=== PATIENT | female | born 1940 | race Caucasian/White ===

== ENCOUNTER 2018-10-08 11:45 | Inpatient (IN) | payer MEDICARE ==
[2018-10-08] MEDS ORDERED: METHYLPREDNISOLONE INJ 125 MG/2 ML SDV IV ONE (12:05)
[2018-10-08] MEDS ORDERED: IPRATROPIUM/ALBUTEROL 0.5-2.5 MG/3 ML AMPUL NEB ONE (12:05)
[2018-10-08] MEDS ORDERED: RINGERS SOLUTION,LACTATED 1,000 ML IV ONE ×3 (12:06→14:40)
[2018-10-08 12:10] LABS: HEMATOCRIT 33.2 % (36.0-47.0); HEMOGLOBIN 10.3 g/dL (12.0-15.5); MEAN CORPUSCULAR HEMOGLOBIN 28.9 pg (27.0-33.4); MEAN CORPUSCULAR HGB CONC 31.1 g/dL (32.0-36.0); MEAN CORPUSCULAR VOLUME 93 fl (80-97); PLATELET COUNT 145 10^3/uL (150-450); RED BLOOD COUNT 3.58 10^6/uL (3.72-5.28); RED CELL DISTRIBUTION WIDTH 16.7 % (11.5-14.0)
[2018-10-08 12:26] LABS: ALANINE AMINOTRANSFERASE 53 U/L (9-52); ALBUMIN 3.2 g/dL (3.5-5.0); ALKALINE PHOSPHATASE 117 U/L (38-126); ANION GAP 18 (5-19); ASPARTATE AMINO TRANSFERASE 78 U/L (14-36); BILIRUBIN,DIRECT 0.6 mg/dL (0.0-0.4); BILIRUBIN,TOTAL 1.2 mg/dL (0.2-1.3); BLOOD UREA NITROGEN 30 mg/dL (7-20); CARBON DIOXIDE 26 mmol/L (22-30); CHLORIDE 94 mmol/L (98-107); GLUCOSE 246 mg/dL (75-110); POTASSIUM 4.2 mmol/L (3.6-5.0); SODIUM 138.1 mmol/L (137-145); TOTAL PROTEIN 7.3 g/dL (6.3-8.2)
--- NOTE | 2018-10-08 12:29 | ER Document Report ---
ED General - General Chief Complaint: Shortness Of Breath Stated Complaint: CHEST PAIN Time Seen by Provider: 10/08/18 11:54 Notes: Patient is a 78-year-old female with COPD, CHF that presents to the emergency department for chief complaint of shortness of breath, difficulty breathing, lightheadedness and chest pain. Patient states that her symptoms started earlier today, but she is been having short of breath over the last 2 days, that is been getting progressively worse, but her chest pain started today. She describes it as sharp sensation in her left chest, with radiation to the left shoulder. Denies history of CAD. But she does have a history of COPD and hypertension. She states that her work of breathing has been progressive, and she feels like she cannot catch her breath, she normally wears 2 L of oxygen 24 hours a day. She also reports having some dysuria and urinary frequency associate with the symptoms, denies having any flank pain, abdominal pain, nausea or vomiting. Past Medical History: CHF, COPD, hypertension, atrial fibrillation Past Surgical History: Cardiac valve replacement Social History: Denies tobacco, alcohol or drug use. Family History: Reviewed and noncontributory for presenting illness Allergies: Reviewed, see documented allergy list. REVIEW OF SYSTEMS: Other than noted above, the 12 point review of systems was reviewed with the patient and were negative, all pertinent findings are included in the HPI. PHYSICAL EXAMINATION: Vital signs reviewed, nursing noted reviewed. GENERAL: Elderly, obese female, in acute respiratory distress HEAD: Atraumatic, normocephalic. EYES: Eyes appear normal, extraocular movements intact, sclera anicteric, conjunctiva are normal. ENT: nares patent, oropharynx clear without exudates. Moist mucous membranes. NECK: Normal range of motion, supple without lymphadenopathy LUNGS: Diminished lung sounds, expiratory wheezing noted, acute and severe respiratory distress. HEART: Heart rate tachycardic, irregular rhythm, 3+ systolic murmur noted. ABDOMEN: Soft, nontender, normoactive bowel sounds. No rebound, guarding, or rigidity. No masses appreciated. EXTREMITIES: Nontender, good range of motion, no pitting or edema. NEUROLOGICAL: No focal neurological deficits. Moves all extremities spontaneously Motor and sensory grossly intact on exam. PSYCH: Patient appears anxious, and has increased work of breathing. SKIN: Warm, Dry, normal turgor, no rashes or lesions noted on exposed skin - Related Data Allergies/Adverse Reactions: Penicillins Allergy (Verified 10/08/18 12:10) Past Medical History - Social History Smoking Status: Never Smoker Family History: Reviewed & Not Pertinent Physical Exam - Vital signs Vitals: Temp Pulse Ox 98.3 F 88 L 10/08/18 11:45 10/08/18 11:45 Course - Re-evaluation Re-evalutation: Patient seen and examined vital signs reviewed. Laboratory data and imaging were ordered as appropriate for the patient's pre senting symptoms and complaint, with consideration of any critical or life threatening conditions that may be associated with their obtained history and exam as noted above. Patient was treated with IV fluid bolusing, she was noted to be hypotensive, she was started on BiPAP, she was hypoxic, on 4 L of nasal cannula, and was having acute respiratory distress, DuoNeb breathing treatments and steroids were ordered as well. Sepsis workup initiated. Results were reviewed when available and demonstrated significant leukocytosis at 26,000, with chest x-ray concerning for right lower lobe pneumonia, at this point IV meropenem, 1 g, and IV Levaquin 750 mg was ordered, the rest the patient's blood work demonstrated elevated lactic acid of 3.8, again pitting with severe sepsis, secondary to pneumonia, renal function demonstrate a creatinine of 1.55, no prior for comparison, INR was elevated however the patient is on Xarelto, and I do not believe this is from acute liver injury, secondary to the patient's hypertension. Her troponin was somewhat elevated at 0.12, however I believe this is secondary to supply demand mismatch, and a type II end STEMI secondary to the patient's hypoxia. Her initial EKG did demonstrate some ST depressions in the lateral leads, this was repeated, after being placed on BiPAP and is ST depressions did resolve. The patient was re-evaluated and was improving, on the BiPAP, her blood pressure did improve to over 100 systolic,, she was maintaining maps over 65, but still hypotensive, patient was bolused with 2 L of IV fluids, I did use ideal body weight for this patient as she has a BMI of greater than 30, and does have congestive heart failure, therefore she has received at least 30 ml/kg based on ideal body weight. Evaluation was most consistent with severe sepsis, pneumonia, acute on chronic respiratory failure with hypoxia, lactic acidosis, elevated troponin Results were discussed with the patient at this point after careful consideration I feel that that patient should be admitted to the hospital. This was discussed with the patient that it is in the best interest for their care to be admitted for further evaluation and management. Patient agreed with this plan of care. A call was placed to the admitted physician, Dr. Ugarte who yris ously accepted the patient onto their service. *Note is created using voice recognition software and may contain spelling, syntax or grammatical errors. Laboratory 10/08/18 10/08/18 10/08/18 11:10 11:10 11:10 WBC 26.0 H RBC 3.58 L Hgb 10.3 L Hct 33.2 L MCV 93 MCH 28.9 MCHC 31.1 L RDW 16.7 H Plt Count 145 L Total Counted 100 Seg Neutrophils % Not Reportable Seg Neuts % (Manual) 80 H Band Neutrophils % 2 L Lymphocytes % Not Reportable Lymphocytes % (Manual) 7 L Monocytes % Not Reportable Monocytes % (Manual) 10 Eosinophils % Not Reportable Eosinophils % (Manual) 0 Basophils % Not Reportable Basophils % (Manual) 0 Metamyelocytes % 1 H Absolute Neutrophils Not Reportable Abs Neuts (Manual) 21.6 H Absolute Lymphocytes Not Reportable Abs Lymphs (Manual) 1.8 Absolute Monocytes Not Reportable Abs Monocytes (Manual) 2.6 H Absolute Eosinophils Not Reportable Absolute Eos (Manual) 0.0 Absolute Basophils Not Reportable Abs Basophils (Manual) 0.0 Toxic Granulation SLIGHT Platelet Comment ADEQUATE Polychromasia SLIGHT Hypochromasia 1+ Anisocytosis 1+ PT INR Carbonic Acid HCO3/H2CO3 Ratio ABG pH ABG pCO2 ABG pO2 ABG HCO3 ABG Total CO2 ABG O2 Saturation ABG Base Excess FiO2 Sodium 138.1 Potassium 4.2 Chloride 94 L Carbon Dioxide 26 Anion Gap 18 BUN 30 H Creatinine 1.55 H Est GFR ( Amer) 39 L Est GFR (Non-Af Amer) 33 L Glucose 246 H Lactic Acid Calcium 8.0 L Total Bilirubin 1.2 Direct Bilirubin 0.6 H Neonat Total Bilirubin Not Reportable Neonat Direct Bilirubin Not Reportable Neonat Indirect Bili Not Reportable AST 78 H ALT 53 H Alkaline Phosphatase 117 Troponin I 0.144 NT-Pro-B Natriuret Pep Total Protein 7.3 Albumin 3.2 L 10/08/18 10/08/1818 11:10 12:40 13:00 WBC RBC Hgb Hct MCV MCH MCHC RDW Plt Count Total Counted Seg Neutrophils % Seg Neuts % (Manual) Band Neutrophils % Lymphocytes % Lymphocytes % (Manual) Monocytes % Monocytes % (Manual) Eosinophils % Eosinophils % (Manual) Basophils % Basophils % (Manual) Metamyelocytes % Absolute Neutrophils Abs Neuts (Manual) Absolute Lymphocytes Abs Lymphs (Manual) Absolute Monocytes Abs Monocytes (Manual) Absolute Eosinophils Absolute Eos (Manual) Absolute Basophils Abs Basophils (Manual) Toxic Granulation Platelet Comment Polychromasia Hypochromasia Anisocytosis PT INR Carbonic Acid 1.78 H HCO3/H2CO3 Ratio 17:1 ABG pH 7.35 ABG pCO2 59.3 H ABG pO2 91.8 ABG HCO3 31.6 H ABG Total CO2 33.5 H ABG O2 Saturation 96.4 ABG Base Excess 4.8 FiO2 40% Sodium Potassium Chloride Carbon Dioxide Anion Gap BUN Creatinine Est GFR ( Amer) Est GFR (Non-Af Amer) Glucose Lactic Acid 3.8 H Calcium Total Bilirubin Direct Bilirubin Neonat Total Bilirubin Neonat Direct Bilirubin Neonat Indirect Bili AST ALT Alkaline Phosphatase Troponin I NT-Pro-B Natriuret Pep 35781 H Total Protein Albumin 10/08/18 13:00 WBC RBC Hgb Hct MCV MCH MCHC RDW Plt Count Total Counted Seg Neutrophils % Seg Neuts % (Manual) Band Neutrophils % Lymphocytes % Lymphocytes % (Manual) Monocytes % Monocytes % (Manual) Eosinophils % Eosinophils % (Manual) Basophils % Basophils % (Manual) Metamyelocytes % Absolute Neutrophils Abs Neuts (Manual) Absolute Lymphocytes Abs Lymphs (Manual) Absolute Monocytes Abs Monocytes (Manual) Absolute Eosinophils Absolute Eos (Manual) Absolute Basophils Abs Basophils (Manual) Toxic Granulation Platelet Comment Polychromasia Hypochromasia Anisocytosis PT 28.6 H INR 2.55 Carbonic Acid HCO3/H2CO3 Ratio ABG pH ABG pCO2 ABG pO2 ABG HCO3 ABG Total CO2 ABG O2 Saturation ABG Base Excess FiO2 Sodium Potassium Chloride Carbon Dioxide Anion Gap BUN Creatinine Est GFR ( Amer) Est GFR (Non-Af Amer) Glucose Lactic Acid Calcium Total Bilirubin Direct Bilirubin Neonat Total Bilirubin Neonat Direct Bilirubin Neonat Indirect Bili AST ALT Alkaline Phosphatase Troponin I NT-Pro-B Natriuret Pep Total Protein Albumin Chest X-Ray 10/08/18 11:48 IMPRESSION: PROBABLE CHRONIC INTERSTITIAL CHANGES. PATCHY DENSITY IN THE RIGHT LOWER LOBE MAY INDICATE DEVELOPING PNEUMONIA. - Vital Signs Vital signs: Temp Pulse Resp BP Pulse Ox 98.3 F 23 H 81/64 L 100 10/08/18 11:53 10/08/18 14:01 10/08/18 14:01 10/08/18 14:00 - Laboratory Result Diagrams: 10/08/18 11:10 10/08/18 11:10 Laboratory results interpreted by me: 10/08/18 10/08/18 10/08/18 11:10 11:10 11:10 WBC 26.0 H RBC 3.58 L Hgb 10.3 L Hct 33.2 L MCHC 31.1 L RDW 16.7 H Plt Count 145 L Seg Neuts % (Manual) 80 H Band Neutrophils % 2 L Lymphocytes % (Manual) 7 L Metamyelocytes % 1 H Abs Neuts (Manual) 21.6 H Abs Monocytes (Manual) 2.6 H PT Carbonic Acid ABG pCO2 ABG HCO3 ABG Total CO2 Chloride 94 L BUN 30 H Creatinine 1.55 H Est GFR ( Amer) 39 L Est GFR (Non-Af Amer) 33 L Glucose 246 H Lactic Acid Calcium 8.0 L Direct Bilirubin 0.6 H AST 78 H ALT 53 H NT-Pro-B Natriuret Pep 38008 H Albumin 3.2 L 10/08/18 10/08/18 10/08/18 12:40 13:00 13:00 WBC RBC Hgb Hct MCHC RDW Plt Count Seg Neuts % (Manual) Band Neutrophils % Lymphocytes % (Manual) Metamyelocytes % Abs Neuts (Manual) Abs Monocytes (Manual) PT 28.6 H Carbonic Acid 1.78 H ABG pCO2 59.3 H ABG HCO3 31.6 H ABG Total CO2 33.5 H Chloride BUN Creatinine Est GFR ( Amer) Est GFR (Non-Af Amer) Glucose Lactic Acid 3.8 H Calcium Direct Bilirubin AST ALT NT-Pro-B Natriuret Pep Albumin - EKG Interpretation by Me Additional EKG results interpreted by me: EKG demonstrates sinus rhythm with first-degree AV block, ventricular rate of 98 bpm, normal axis, QTC 496ms, patient does have ST depressions in leads I, aVL, and V5 and V6, there is baseline artifact, I do not have a prior EKG for comparison. EKG #2 demonstrates atrial fibrillation with ventricular rate of 85 bpm, normal axis, QTC 524 ms, ST depressions noted on previous EKG have resolved. Procedures - Additional Procedures IV insertion Additional Procedures: IV insertion - Ultrasound-guided IV placed by myself, and the patient's left upper arm. Critical Care Note - Critical Care Note Total time excluding time spent on procedures (mins): 60 Comments: Critical care time 60 minutes exclusive from separate billable procedures for a patient requiring complex medical decision making, and high potential for clinical deterioration. In a patient with multiple comorbidities, severe sepsis, requiring fluid resuscitation and placement on noninvasive positive pressure ventilation. Time spent obtaining history from patient or surrogate, discussions with consultants, development of treatment plan with patient or surr ogate, evaluation of patient's response to treatment, examination of patient, ordering and performing treatments and interventions, ordering and review of laboratory studies, re-evaluation of patient's condition, ordering and review of radiographic studies and review of old charts Discharge - Discharge Clinical Impression: Severe sepsis, Elevated troponin, Lactic acidosis Pneumonia Qualifiers: Pneumonia type: due to unspecified organism Laterality: right Lung location: lower lobe of lung Qualified Code(s): J18.1 - Lobar pneumonia, unspecified organism Hypotension Qualifiers: Hypotension type: unspecified hypotension type Qualified Code(s): I95.9 - Hypotension, unspecified Acute and chronic respiratory failure Qualifiers: Respiratory failure complication: hypoxia and hypercapnia Qualified Code(s): J96.21 - Acute and chronic respiratory failure with hypoxia Condition: Stable Disposition: ADMITTED INPATIENT Admitting Provider: Hospitalist - Dr. Ugarte Unit Admitted: [facility]
[2018-10-08] MEDS ORDERED: LEVOFLOXACIN 750 MG/D5W RTU 750 MG/150 ML RTUPB IV ONE (12:34)
[2018-10-08] MEDS ORDERED: MEROPENEM 1 GM VIAL IV ONE (12:34)
--- NOTE | 2018-10-08 12:51 | RADIOLOGY REPORT (SQ) ---
EXAM DESCRIPTION: CHEST SINGLE VIEW COMPLETED DATE/TIME: 10/08/2018 12:33 pm REASON FOR STUDY: BED 10 CP COMPARISON: None. EXAM PARAMETERS: NUMBER OF VIEWS: One view. TECHNIQUE: Single frontal radiographic view of the chest acquired. RADIATION DOSE: NA LIMITATIONS: None. FINDINGS: LUNGS AND PLEURA: Probable chronic interstitial changes. Patchy density in the right lowe r lobe. No large pleural effusion. No pneumothorax. MEDIASTINUM AND HILAR STRUCTURES: No masses. Contour normal. HEART AND VASCULAR STRUCTURES: Heart normal in size. Normal vasculature. BONES: No acute findings. HARDWARE: Aortic valve prosthesis. Bilateral surgical clips. Vascular port. OTHER: No other significant finding. IMPRESSION: PROBABLE CHRONIC INTERSTITIAL CHANGES. PATCHY DENSITY IN THE RIGHT LOWER LOBE MAY INDIC ATE DEVELOPING PNEUMONIA. TECHNICAL DOCUMENTATION: JOB ID: [id number] [employer]- All Rights Reserved Reading location - IP/workstation name: [email or web address]
[2018-10-08 13:00] LABS: ARTERIAL BLOOD BASE EXCESS 4.8 mmol/L; ARTERIAL BLOOD H2CO3 1.78 mmol/L (1.05-1.35); ARTERIAL BLOOD HCO3 31.6 mmol/L (20-24); ARTERIAL BLOOD O2 SATURATION 96.4 % (94-98); ARTERIAL BLOOD PCO2 59.3 mmHg (35-45); ARTERIAL BLOOD PH 7.35 (7.35-7.45); ARTERIAL BLOOD PO2 91.8 mmHg (80-100); ARTERIAL BLOOD TOTAL CO2 33.5 mmol/L (21-25)
[2018-10-08 13:02] LABS: ABSOLUTE LYMPHOCYTES# (MANUAL) 1.8 10^3/uL (0.5-4.7); ABSOLUTE MONOCYTES # (MANUAL) 2.6 10^3/uL (0.1-1.4); ABSOLUTE NEUTROPHILS# (MANUAL) 21.6 10^3/uL (1.7-8.2); ANISOCYTOSIS 1+; BAND NEUTROPHILS % (MANUAL) 2 % (3-5); BASOPHILS % (MANUAL) 0 % (0-2); EOSINOPHILS % (MANUAL) 0 % (0-6); HYPOCHROMASIA 1+; LYMPHOCYTES % (MANUAL) 7 % (13-45); METAMYELOCYTES % (MANUAL) 1 % (0); MONOCYTES % (MANUAL) 10 % (3-13); PLATELET COMMENT ADEQUATE; POLYCHROMASIA SLIGHT; SEGMENTED NEUTROPHILS % (MAN) 80 % (42-78); TOTAL CELLS COUNTED 100; TOXIC GRANULATION SLIGHT
[2018-10-08 13:02] LABS: ARTERIAL BLOOD FIO2 40%
--- NOTE | 2018-10-08 13:06 | EKG REPORT ---
SEVERITY:- ABNORMAL ECG - SINUS RHYTHM FIRST DEGREE AV BLOCK LEFT ATRIAL ABNORMALITY NONSPECIFIC INTRAVENTRICULAR CONDUCTION DELAY LVH WITH SECONDARY REPOLARIZATION ABNORMALITY : Confirmed by: Kendell Dowd MD 08-Oct-2018 13:04:52
[2018-10-08 13:46] LABS: INTERNATIONAL RATION (INR) 2.55; PROTHROMBIN TIME 28.6 SEC (11.4-15.4)
[2018-10-08] MEDS ORDERED: LEVALBUTEROL HCL NEB 1.25 MG/3 ML AMPUL NEB PRN (15:56)
[2018-10-08] MEDS ORDERED: ACETAMINOPHEN 325 MG TABLET PO PRN (15:56)
[2018-10-08] MEDS ORDERED: ALPRAZOLAM 0.25 MG TABLET PO PRN (16:08)
[2018-10-08] MEDS ORDERED: RINGERS SOLUTION,LACTATED 1,000 ML IV PRN (16:10)
[2018-10-08 16:13] LABS: APPEARANCE,URINE CLOUDY; BILIRUBIN,URINE NEGATIVE (NEGATIVE); GLUCOSE, URINE NEGATIVE (NEGATIVE); KETONES,URINE NEGATIVE (NEGATIVE); LEUKOCYTE ESTERASE,URINE MODERATE (NEGATIVE); NITRITE,URINE NEGATIVE (NEGATIVE); PROTEIN,URINE 100 mg/dL (NEGATIVE)
[2018-10-08 16:14] LABS: COLOR,URINE DARK YELLOW
--- NOTE | 2018-10-08 16:53 | PDOC H&P ---
History of Present Illness Admission Date/PCP: 10/08/18 14:12 Patient complains of: Increased shortness of breath with rigors and fever History of Present Illness: LISA GARDNER is a 78 year old female With a complex medical history. 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 She has had an aortic valve replacement in February of this year. She had bilateral mastectomies (1976 and 2015) and has underlying COPD. Approximately 1 week ago she began to feel poorly. She was noticing increasing shortness of breath. She began to feel wheezy and then had shaking chills and subsequently felt like she was b urning up. Interestingly she never had a productive cough. She just finished one chemotherapy treatment 1 month ago. In addition she states that her urine has been burning when she pees over the last day or 2. On presentation she was found to be hypotensive despite 2 L of Ringer's lactate. She is tachycardic. Chest x-ray shows a right lower lobe infiltrate with possible interstitial lung disease. [place] for her aortic valve replacement were noted. She also has a Port-A-Cath. She has an elevated white blood cell count, increased lactic acid, hyperglycemia and decreased GFR likely from an acute kidney injury. Past Medical History Cardiac Medical History: Reports: Atrial Fibrillation Cardiac History Note: The patient has required pressor therapy on 2 occasions. Most recently during her aortic valve replacement hospitalization. Pulmonary Medical History: Reports: Chronic Obstructive Pulmonary Disease (COPD) - w/ 2LNC home 02 EENT Medical History: Denies: Eyes, Ears, Nose, Throat Neurological Medical History: Reports: None Endocrine Medical History: Reports: Hypothyroidism Renal/ Medical History: Denies: Chronic Kidney Disease Malignancy Medical History: Reports: Bone Cancer, Breast Cancer GI Medical History: Reports: None Musculoskeltal Medical History: Reports: Arthritis, Other - Bone metastases Skin Medical History: Reports: None Psychiatric Medical History: Denies: Alcohol Dependency, Depression Traumatic Medical History: Reports: None Hematology: Denies: Anemia, Bleeding Tendencies Infectious Medical History: Reports: None Past Surgical History Past Surgical History: Reports: Mastectomy - bilateral, Orthopedic Surgery - Right ankle fracture repair, Tubal Ligation, Valve Replacement Social History Information Source: Patient, Relative Lives with: Alone Smoking Status: Never Smoker Frequency of Alcohol Use: None Hx Recreational Drug Use: No Hx Prescription Drug Abuse: No Past Social History Note: with one son - Advance Directive Surrogate healthcare decision maker:: Patient does not have a formal healthcare proxy but her son (who is at the bedside) would be the next relative to make decisions. Family History Family History: CAD - Father, Malignancy - Both grandfathers, 1 brother Parental Family History Reviewed: Yes - As above Children Family History Reviewed: Yes Sibling(s) Family History Reviewed.: Yes Medication/Allergy Home Medications: Alprazolam [Xanax 0.25 mg Tablet] 0.25 mg PO Q8HP PRN 10/08/18 Aspirin [Ecotrin 81 mg EC Tablet] 81 mg PO DAILY 10/08/18 Furosemide [Lasix 40 mg Tablet] 40 mg PO DAILY 10/08/18 Levothyroxine Sodium [Synthroid 0.025 mg Tablet] 0.025 mg PO Q6AM 10/08/18 Pantoprazole Sodium [Protonix] 40 mg PO DAILY 10/08/18 Rivaroxaban [Xarelto] 20 mg PO DAILY 10/08/18 Umeclidinium Brm/Vilanterol Tr [Anoro Ellipta 62.5-25 Mcg INH] 1 each IH DAILY 10/08/18 Allergies/Adverse Reactions: Penicillins Allergy (Verified 10/08/18 12:10) Review of Systems Constitutional: PRESENT: as per HPI, chills, fever(s) Eyes: ABSENT: visual disturbances Ears: ABSENT: hearing changes Nose, Mouth, and Throat: ABSENT: headache(s), mouth pain, vertigo Cardiovascular: PRESENT: dyspnea on exertion. ABSENT: chest pain Respiratory: PRESENT: cough, dyspnea. ABSENT: sputum Gastrointestinal: PRESENT: abdominal pain, diarrhea - Recent episode. ABSENT: nausea, vomiting Genitourinary: PRESENT: dysuria Musculoskeletal: PRESENT: other - Arthritis and multiple joints Integumentary: PRESENT: other - Chronic pigment deposition lower extremities consistent with venous insufficiency Neurological: ABSENT: abnormal speech, confusion, memory loss, syncope, vertigo Psychiatric: ABSENT: anxiety, depression, hallucinations Endocrine: ABSENT: cold intolerance, heat intolerance, polydipsia, polyphagia Hematologic/Lymphatic: ABSENT: easy bleeding, easy bruising - She is on aspirin and Xarelto Physical Exam Vital Signs: Temp Pulse Resp BP Pulse Ox 98.3 F 38 H 85/71 L 95 10/08/18 11:53 10/08/18 15:13 10/08/18 15:13 10/08/18 16:12 Intake & Output 10/07/18 10/08/18 10/09/18 06:59 06:59 06:59 Intake Total 4750 Balance 4750 Weight 103 kg General appearance: PRESENT: cooperative, mild distress, obese, well-developed Head exam: PRESENT: atraumatic, normocephalic Eye exam: PRESENT: conjunctiva pink. ABSENT: scleral icterus Ear exam: PRESENT: normal external ear exam Respiratory exam: PRESENT: clear to auscultation konrad, decreased breath sounds - Currently on BiPAP, prolonged expiratory phas, symmetrical. ABSENT: accessory muscle use, rales, rhonchi, wheezes Cardiovascular exam: PRESENT: +S1, +S2, systolic murmur, tachycardia. ABSENT: clicks GI/Abdominal exam: PRESENT: distended - Protuberant, normal bowel sounds, soft, tenderness - Slightly tender periumbilical area Rectal exam: PRESENT: deferred Extremities exam: PRESENT: +1 edema Musculoskeletal exam: PRESENT: normal inspection Neurological exam: PRESENT: alert, awake, oriented to person, oriented to place, oriented to situation, CN II-XII grossly intact Psychiatric exam: PRESENT: appropriate affect. ABSENT: agitated Focused psych exam: ABSENT: restlessness Additional comments: Bilateral mastectomies. Port-A-Cath present. Results Laboratory Results: 10/08/18 11:10 10/08/18 11:10 10/08/18 10/08/18 10/08/18 11:10 11:10 12:40 WBC 26.0 H RBC 3.58 L Hgb 10.3 L Hct 33.2 L MCV 93 MCH 28.9 MCHC 31.1 L RDW 16.7 H Plt Count 145 L Seg Neutrophils % Not Reportable Lymphocytes % Not Reportable Monocytes % Not Reportable Eosinophils % Not Reportable Basophils % Not Reportable Absolute Neutrophils Not Reportable Absolute Lymphocytes Not Reportable Absolute Monocytes Not Reportable Absolute Eosinophils Not Reportable Absolute Basophils Not Reportable Carbonic Acid 1.78 H HCO3/H2CO3 Ratio 17:1 ABG pH 7.35 ABG pCO2 59.3 H ABG pO2 91.8 ABG HCO3 31.6 H ABG O2 Saturation 96.4 ABG Base Excess 4.8 FiO2 40% Sodium 138.1 Potassium 4.2 Chloride 94 L Carbon Dioxide 26 Anion Gap 18 BUN 30 H Creatinine 1.55 H Est GFR ( Amer) 39 L Est GFR (Non-Af Amer) 33 L Glucose 246 H Lactic Acid Calcium 8.0 L Total Bilirubin 1.2 AST 78 H ALT 53 H Alkaline Phosphatase 117 Total Protein 7.3 Albumin 3.2 L Urine Color Urine Appearance Urine pH Ur Specific [place] Urine Protein Urine Glucose (UA) Urine Ketones Urine Blood Urine Nitrite Ur Leukocyte Esterase Urine WBC (Auto) Urine RBC (Auto) 10/08/18 10/08/18 13:00 15:50 WBC RBC Hgb Hct MCV MCH MCHC RDW Plt Count Seg Neutrophils % Lymphocytes % Monocytes % Eosinophils % Basophils % Absolute Neutrophils Absolute Lymphocytes Absolute Monocytes Absolute Eosinophils Absolute Basophils Carbonic Acid HCO3/H2CO3 Ratio ABG pH ABG pCO2 ABG pO2 ABG HCO3 ABG O2 Saturation ABG Base Excess FiO2 Sodium Potassium Chloride Carbon Dioxide Anion Gap BUN Creatinine Est GFR ( Amer) Est GFR (Non-Af Amer) Glucose Lactic Acid 3.8 H Calcium Total Bilirubin AST ALT Alkaline Phosphatase Total Protein Albumin Urine Color DARK YELLOW Urine Appearance CLOUDY Urine pH 5.0 Ur Specific [place] 1.020 Urine Protein 100 H Urine Glucose (UA) NEGATIVE Urine Ketones NEGATIVE Urine Blood SMALL H Urine Nitrite NEGATIVE Ur Leukocyte Esterase MODERATE H Urine WBC (Auto) 175 Urine RBC (Auto) 8 10/08/18 10/08/18 11:10 11:10 Troponin I 0.144 NT-Pro-B Natriuret Pep 41824 H Impressions: Chest X-Ray 10/08/18 11:48 IMPRESSION: PROBABLE CHRONIC INTERSTITIAL CHANGES. PATCHY DENSITY IN THE RIGHT LOWER LOBE MAY INDICATE DEVELOPING PNEUMONIA. Assessment & Plan - Diagnosis (1) Septic shock due to undetermined organism Is this a current diagnosis for this admission?: Yes Plan: The patient is a full code. She in fact has been on pressor therapy twice before. This was most recently when she had her aortic valve replaced in February of this year. We will provide pressor support as well as fluids. I am holding her furosemide. She has urine and blood cultures pending. She does not have a productive cough and therefore no sputum is pending however I did order a sputum culture if one becomes available. (2) Elevated troponin Is this a current diagnosis for this admission?: Yes Plan: It is possible that the elevated troponin is from physiologic stress with the sepsis. We will obtain serial troponins and continue to monitor EKG. (3) Pneumonia Qualifiers: Pneumonia type: due to unspecified organism Laterality: right Lung location: lower lobe of lung Qualified Code(s): J18.1 - Lobar pneumonia, unspecified organism Is this a current diagnosis for this admission?: Yes Plan: The patient was given meropenem and levofloxacin in the emergency department. There was a noticeable change in her QT interval after the levofloxacin. She is allergic to penicillin. For this reason I am going to give her azithromycin and meropenem initially. Hopefully culture results will be available so that I may taper the antibiotic therapy based on those results. (4) Acute and chronic respiratory failure Qualifiers: Respiratory failure complication: hypoxia and hypercapnia Qualified Code (s): J96.21 - Acute and chronic respiratory failure with hypoxia; J96.22 - Acute and chronic respiratory failure with hypercapnia Is this a current diagnosis for this admission?: Yes Plan: Patient has underlying chronic obstructive pulmonary disease. The chest x-ray also suggests possible interstitial lung disease. We will continue with the BiPAP therapy. She is on systemic steroids and utilize duo nebs, budesonide and as needed Xopenex. Oxygen will be supplemented through the BiPAP. (5) Lactic acidosis Is this a current diagnosis for this admission?: Yes Plan: Patient has received multiple doses of IV fluid. We will monitor her lactic acid. This should improve since it was only elevated to 3.8. (6) Acute cystitis Qualifiers: Hematuria presence: without hematuria Qualified Code(s): N30.00 - Acute cystitis without hematuria Is this a current diagnosis for this admission?: Yes Plan: The patient is on meropenem and azithromycin for her pneumonia. We will need to broaden the spectrum for gram-positive cocci coverage if there is a suggestion of staph or strep in the urine. (7) Acute kidney injury Is this a current diagnosis for this admission?: Yes Plan: There is no history of chronic kidney disease. Her BUN and creatinine are elevated. Will monitor renal function. Adjust medications based on GFR. (8) Prolonged Q-T interval on ECG Is this a current diagnosis for this admission?: Yes Plan: After a dose of levofloxacin the patient's QT was prolonged. Therefore I will not use levofloxacin as part of her regimen. We will continue to monitor the QT interval. - Time Time Spent: Greater than 70 Minutes Medications reviewed and adjusted accordingly: Yes - Inpatient Certification Based on my medical assessment, after consideration of the patient's comorbidities, presenting symptoms, or acuity I expect that the services needed warrant INPATIENT care.: Yes I certify that my determination is in accordance with my understanding of Medicare's requirements for reasonable and necessary INPATIENT services [42 CFR 412.3e].: Yes Medical Necessity: Significant Comorbidiites Make Outpatient Treatment Too Risky, Need Close Monitoring Due to Risk of Patient Decompensation, Need For IV Fluids, Need For Continuous Telemetry Monitoring, Need for Nebulizer Therapy and Monitoring of Response, Need for IV Antibiotics, Risk of Complication if Not Cared For in Hospital Post Hospital Care: D/C Policy Checker Documentation - Plan Summary Plan Summary: I had a lengthy discussion with the patient and her son. Despite her significant comorbidities the patient requests full CODE STATUS with aggressive resuscitation and intubation if required. She has been on pressor therapies twice in the past. Most recently in February after her cardiac surgery. Her son is the next medical decision maker as her has . They do not have a formal written healthcare proxy. I did have a chance to speak to the son outside of the room while they were collecting urine specimen. I did tell him that her prognosis is guarded especially if she is septic with bacteria in the urine, blood and a pneumonia especially considering her underlying metastatic malignancy and chronic obstructive pulmonary disease. I told him we would continue to assess daily. If she does not improve or worsens then we will repeat this discussion and possibly revive her status.
[2018-10-08 17:47] LABS: ANION GAP 10 (5-19); BLOOD UREA NITROGEN 32 mg/dL (7-20); CALCIUM 7.5 mg/dL (8.4-10.2); CARBON DIOXIDE 29 mmol/L (22-30); CHLORIDE 98 mmol/L (98-107); GLUCOSE 181 mg/dL (75-110); POTASSIUM 4.6 mmol/L (3.6-5.0); SODIUM 136.7 mmol/L (137-145)
--- NOTE | 2018-10-08 18:15 | EKG REPORT ---
SEVERITY:- ABNORMAL ECG - ATRIAL FIBRILLATION, V-RATE 75-94 NONSPECIFIC INTRAVENTRICULAR CONDUCTION DELAY PROBABLE LVH WITH SECONDARY REPOL ABNRM : Confirmed by: Kendell Dowd MD 08-Oct-2018 18:14:42
[2018-10-08] MEDS: DEXTROSE 5%-WATER 250 ML with NOREPINEPHRINE BITARTRATE 4 MG IV PRN ×2 (18:49)
[2018-10-08] MEDS: BUDESONIDE NEB 0.5 MG/2 ML AMPUL NEB SCH (20:08)
[2018-10-08] MEDS: IPRATROPIUM/ALBUTEROL 0.5-2.5 MG/3 ML AMPUL NEB SCH (20:08)
[2018-10-08] MEDS ORDERED: AZITHROMYCIN 500 MG in DEXTROSE 5%-WATER 250 ML IV SCH (22:00)
[2018-10-08] MEDS ORDERED: MEROPENEM 1 GM in NORMAL SALINE 50 ML IV SCH (22:00)
[2018-10-08] MEDS: GUAIFENESIN 600 MG TABLET.SA PO SCH (22:14)
[2018-10-08] MEDS: METHYLPREDNISOLONE INJ 125 MG/2 ML SDV IV SCH (22:15)
[2018-10-09] MEDS: IPRATROPIUM/ALBUTEROL 0.5-2.5 MG/3 ML AMPUL NEB SCH ×4 (02:03→19:25)
[2018-10-09 02:29] LABS: ARTERIAL BLOOD BASE EXCESS -1.6 mmol/L; ARTERIAL BLOOD H2CO3 2.69 mmol/L (1.05-1.35); ARTERIAL BLOOD HCO3 29.4 mmol/L (20-24); ARTERIAL BLOOD O2 SATURATION 92.9 % (94-98); ARTERIAL BLOOD PO2 87.3 mmHg (80-100); ARTERIAL BLOOD TOTAL CO2 32.2 mmol/L (21-25)
[2018-10-09 02:30] LABS: ARTERIAL BLOOD FIO2 80%
[2018-10-09 02:31] LABS: ARTERIAL BLOOD PCO2 89.4 mmHg (35-45); ARTERIAL BLOOD PH 7.14 (7.35-7.45)
[2018-10-09] MEDS ORDERED: VANCOMYCIN HCL 1,000 MG in DEXTROSE 5%-WATER 250 ML IV ONE (02:41)
[2018-10-09] MEDS ORDERED: DEXTROSE 5%-WATER 250 ML with PHENYLEPHRINE HCL 40 MG IV PRN ×4 (02:42→12:03)
[2018-10-09] MEDS ORDERED: NORMAL SALINE 1000 ML 1,000 ML IV PRN (02:45)
[2018-10-09] MEDS ORDERED: VANCOMYCIN HCL 0 MG in DEXTROSE 5%-WATER 250 ML IV NR (02:45)
[2018-10-09] MEDS ORDERED: SODIUM BICARBONATE 8.4% INJ 50 MEQ/50 ML DISP.SYRIN ONE (02:46)
[2018-10-09] MEDS ORDERED: VANCOMYCIN HCL INJ 1000 MG VIAL IV PRN (02:53)
[2018-10-09] MEDS ORDERED: SODIUM BICARBONATE 8.4% INJ 50 MEQ/50 ML DISP.SYRIN IV ONE (03:00)
[2018-10-09] MEDS ORDERED: CEFEPIME 1 GM/D5W RTU 1 GM/50 ML RTUPB IV SCH ×2 (03:00)
[2018-10-09] MEDS ORDERED: PROPOFOL INJ 200 MG/20 ML VIAL IV ONE (03:03)
[2018-10-09] MEDS ORDERED: FENTANYL CITRATE INJ/PF 100 MCG/2 ML AMPUL IV PRN (03:06)
[2018-10-09] MEDS ORDERED: PHENYLEPHRINE HCL INJ/PF 10 MG/1 ML SDV ONE (03:06)
--- NOTE | 2018-10-09 03:31 | RADIOLOGY REPORT (SQ) ---
EXAM DESCRIPTION: XR CHEST 1 VIEW COMPLETED DATE/TME: 10/09/2018 00:00 CLINICAL HISTORY: 78 years, Female, intubation COMPARISON: 10/08/2018 NUMBER OF VIEWS: One TECHNIQUE: AP view of the chest LIMITATIONS: None. FINDINGS: The endotracheal and nasogastric tubes are in satisfactory position. The left chest wall port is stable in position. There are worsening air space opacities within the right lung. Defibrillator pads obscure the left lung base. The heart size is stable. IMPRESSION: Satisfactory position of the endotracheal and nasogastric tubes. Worsening air space opacities in the right lung copyright 2010 [facility] [employer]- All Rights Reserved
[2018-10-09] MEDS: DEXTROSE 5%-WATER 250 ML with NOREPINEPHRINE BITARTRATE 4 MG IV PRN ×6 (04:35→15:41)
[2018-10-09] MEDS: PROPOFOL 1,000 MG/100 ML INFUS..BTL IV PRN ×2 (04:53→07:30)
[2018-10-09] MEDS ORDERED: VANCOMYCIN HCL INJ 1000 MG VIAL ONE (05:25)
[2018-10-09 05:38] LABS: MEAN CORPUSCULAR HEMOGLOBIN 28.9 pg (27.0-33.4)
[2018-10-09 05:43] LABS: HEMATOCRIT 29.7 % (36.0-47.0); HEMOGLOBIN 9.5 g/dL (12.0-15.5); MEAN CORPUSCULAR VOLUME 90 fl (80-97); PLATELET COUNT 106 10^3/uL (150-450); RED BLOOD COUNT 3.29 10^6/uL (3.72-5.28); RED CELL DISTRIBUTION WIDTH 16.6 % (11.5-14.0)
[2018-10-09 05:50] LABS: ANION GAP 11 (5-19); BLOOD UREA NITROGEN 41 mg/dL (7-20); CARBON DIOXIDE 30 mmol/L (22-30); CHLORIDE 94 mmol/L (98-107); GLUCOSE 261 mg/dL (75-110); POTASSIUM 4.7 mmol/L (3.6-5.0); SODIUM 134.5 mmol/L (137-145)
[2018-10-09 06:02] LABS: ABSOLUTE LYMPHOCYTES# (MANUAL) 0.6 10^3/uL (0.5-4.7); ABSOLUTE MONOCYTES # (MANUAL) 1.4 10^3/uL (0.1-1.4); BAND NEUTROPHILS % (MANUAL) 1 % (3-5); BASOPHILS % (MANUAL) 0 % (0-2); CALCIUM 6.7 mg/dL (8.4-10.2); EOSINOPHILS % (MANUAL) 0 % (0-6); LYMPHOCYTES % (MANUAL) 2 % (13-45); METAMYELOCYTES % (MANUAL) 1 % (0); MONOCYTES % (MANUAL) 5 % (3-13); SEGMENTED NEUTROPHILS % (MAN) 91 % (42-78); TOTAL CELLS COUNTED 100
[2018-10-09 06:08] LABS: ANISOCYTOSIS 1+; PLATELET COMMENT ADEQUATE; POIKILOCYTOSIS SLIGHT; POLYCHROMASIA 1+; TEAR DROP CELLS 1+; TOXIC GRANULATION 1+
[2018-10-09 06:09] LABS: PLATELET GIANT PRESENT; PLATELET LARGE PRESENT
[2018-10-09] MEDS: LANSOPRAZOLE 30 MG TAB.RAP.DR PO SCH (06:12)
--- NOTE | 2018-10-09 06:23 | Progress Note ---
Provider Note Provider Note: Contacted by patient's nurse for hypoxia and hypotension. Patient seen and poorly responsive with tachypnea, pulse oximetry in the mid 80s despite 100% FiO2. ABG reveals hypoxia and hypercapnia. Patient is intubated and ordered 2 Amps of of bicarb. Chest x-ray reveals markedly worsened bilateral infiltrate, blood cultures returned positive for gram-positive cocci. She is ordered 2 L of saline, Rohan-Synephrine, vancomycin and cefepime. Follow-up ABG
[2018-10-09] MEDS ORDERED: CALCIUM GLUCONATE 2,000 MG in DEXTROSE 5%-WATER 100 ML IV ONE (06:30)
[2018-10-09] MEDS: METHYLPREDNISOLONE INJ 125 MG/2 ML SDV IV SCH ×3 (06:36→21:20)
[2018-10-09] MEDS: LEVOTHYROXINE SODIUM 0.025 MG TABLET PO SCH (06:37)
[2018-10-09] MEDS ORDERED: CALCIUM GLUCONATE 1000 MG/10 ML INJ IV ONE ×2 (06:53→13:30)
--- NOTE | 2018-10-09 07:46 | EKG REPORT ---
SEVERITY:- ABNORMAL ECG - SINUS RHYTHM FIRST DEGREE AV BLOCK NONSPECIFIC INTRAVENTRICULAR CONDUCTION DELAY PROBABLE LVH WITH SECONDARY REPOL ABNRM NONSPECIFIC ST-T CHANGES LATERAL LEADS : Confirmed by: Kendell Dowd MD 09-Oct-2018 07:45:47
[2018-10-09] MEDS ORDERED: VANCOMYCIN HCL 500 MG in DEXTROSE 5%-WATER 100 ML IV ONE (08:00)
[2018-10-09] MEDS: BUDESONIDE NEB 0.5 MG/2 ML AMPUL NEB SCH ×2 (08:27→19:25)
[2018-10-09] MEDS ORDERED: MIDAZOLAM HCL 50 MG/100 ML RTUINJ ONE (09:11)
[2018-10-09 09:15] LABS: ARTERIAL BLOOD H2CO3 1.75 mmol/L (1.05-1.35); ARTERIAL BLOOD HCO3 31.8 mmol/L (20-24); ARTERIAL BLOOD O2 SATURATION 95.3 % (94-98); ARTERIAL BLOOD PCO2 58.3 mmHg (35-45); ARTERIAL BLOOD PH 7.35 (7.35-7.45); ARTERIAL BLOOD PO2 81.8 mmHg (80-100); ARTERIAL BLOOD TOTAL CO2 33.5 mmol/L (21-25)
--- NOTE | 2018-10-09 09:18 | PDOC PROGRESS REPORT ---
Subjective Progress Note for:: 10/09/18 Subjective:: The patient experienced a significant decline last night. She became more dyspneic. She was confused. Blood gas revealed hypercapnia with acidosis. The patient required intubation. An x-ray revealed bilateral pneumonia with possible interstitial lung disease. Reason For Visit: PNEUMONIA Physical Exam Vital Signs: Temp Pulse Resp BP Pulse Ox 97.6 F 66 18 96/61 L 97 10/09/18 00:00 10/09/18 06:00 10/09/18 07:18 10/09/18 07:18 10/09/18 07:18 Intake & Output 10/08/18 10/09/18 10/10/18 06:59 06:59 06:59 Intake Total 4892 469 Balance 4892 469 Weight 103 kg General appearance: PRESENT: severe distress Mouth exam: PRESENT: other - Endotracheal tube in place Respiratory exam: PRESENT: decreased breath sounds - Bilaterally. ABSENT: stridor, wheezes Cardiovascular exam: PRESENT: RRR, +S1, +S2, systolic murmur - 3/6 GI/Abdominal exam: PRESENT: normal bowel sounds, soft. ABSENT: tenderness Gentrourinary exam: PRESENT: indwelling catheter Extremities exam: PRESENT: +1 edema Neurological exam: PRESENT: alert, awake, other - Intubated Psychiatric exam: PRESENT: agitated, anxious Skin exam: PRESENT: pallor - Toes. ABSENT: cyanosis Results Laboratory Results: 10/09/18 05:20 10/09/18 05:20 10/08/18 10/08/18 10/08/18 11:10 11:10 12:40 WBC 26.0 H RBC 3.58 L Hgb 10.3 L Hct 33.2 L MCV 93 MCH 28.9 MCHC 31.1 L RDW 16.7 H Plt Count 145 L Seg Neutrophils % Not Reportable Lymphocytes % Not Reportable Monocytes % Not Reportable Eosinophils % Not Reportable Basophils % Not Reportable Absolute Neutrophils Not Reportable Absolute Lymphocytes Not Reportable Absolute Monocytes Not Reportable Absolute Eosinophils Not Reportable Absolute Basophils Not Reportable Carbonic Acid 1.78 H HCO3/H2CO3 Ratio 17:1 ABG pH 7.35 ABG pCO2 59.3 H ABG pO2 91.8 ABG HCO3 31.6 H ABG O2 Saturation 96.4 ABG Base Excess 4.8 FiO2 40% Sodium 138.1 Potassium 4.2 Chloride 94 L Carbon Dioxide 26 Anion Gap 18 BUN 30 H Creatinine 1.55 H Est GFR ( Amer) 39 L Est GFR (Non-Af Amer) 33 L Glucose 246 H Lactic Acid Calcium 8.0 L Magnesium Total Bilirubin 1.2 AST 78 H ALT 53 H Alkaline Phosphatase 117 Total Protein 7.3 Albumin 3.2 L Urine Color Urine Appearance Urine pH Ur Specific [place] Urine Protein Urine Glucose (UA) Urine Ketones Urine Blood Urine Nitrite Ur Leukocyte Esterase Urine WBC (Auto) Urine RBC (Auto) 10/08/18 10/08/18 10/08/18 13:00 15:50 16:20 WBC RBC Hgb Hct MCV MCH MCHC RDW Plt Count Seg Neutrophils % Lymphocytes % Monocytes % Eosinophils % Basophils % Absolute Neutrophils Absolute Lymphocytes Absolute Monocytes Absolute Eosinophils Absolute Basophils Carbonic Acid HCO3/H2CO3 Ratio ABG pH ABG pCO2 ABG pO2 ABG HCO3 ABG O2 Saturation ABG Base Excess FiO2 Sodium Potassium Chloride Carbon Dioxide Anion Gap BUN Creatinine Est GFR ( Amer) Est GFR (Non-Af Amer) Glucose Lactic Acid 3.8 H 4.3 H Calcium Magnesium Total Bilirubin AST ALT Alkaline Phosphatase Total Protein Albumin Urine Color DARK YELLOW Urine Appearance CLOUDY Urine pH 5.0 Ur Specific [place] 1.020 Urine Protein 100 H Urine Glucose (UA) NEGATIVE Urine Ketones NEGATIVE Urine Blood SMALL H Urine Nitrite NEGATIVE Ur Leukocyte Esterase MODERATE H Urine WBC (Auto) 175 Urine RBC (Auto) 8 10/08/18 10/08/18 10/08/18 17:22 17:22 17:22 WBC RBC Hgb Hct MCV MCH MCHC RDW Plt Count Seg Neutrophils % Lymphocytes % Monocytes % Eosinophils % Basophils % Absolute Neutrophils Absolute Lymphocytes Absolute Monocytes Absolute Eosinophils Absolute Basophils Carbonic Acid HCO3/H2CO3 Ratio ABG pH ABG pCO2 ABG pO2 ABG HCO3 ABG O2 Saturation ABG Base Excess FiO2 Sodium 136.7 L Potassium 4.6 Chloride 98 Carbon Dioxide 29 Anion Gap 10 BUN 32 H Creatinine 1.45 H Est GFR ( Amer) 42 L Est GFR (Non-Af Amer) 35 L Glucose 181 H Lactic Acid Cancelled 2.8 H Calcium 7.5 L Magnesium 1.7 Total Bilirubin AST ALT Alkaline Phosphatase Total Protein Albumin Urine Color Urine Appearance Urine pH Ur Specific [place] Urine Protein Urine Glucose (UA) Urine Ketones Urine Blood Urine Nitrite Ur Leukocyte Esterase Urine WBC (Auto) Urine RBC (Auto) 10/09/18 10/09/18 10/09/18 02:15 05:20 05:20 WBC 28.0 H RBC 3.29 L Hgb 9.5 L Hct 29.7 L MCV 90 MCH 28.9 MCHC 32.0 RDW 16.6 H Plt Count 106 L Seg Neutrophils % Not Reportable Lymphocytes % Not Reportable Monocytes % Not Reportable Eosinophils % Not Reportable Basophils % Not Reportable Absolute Neutrophils Not Reportable Absolute Lymphocytes Not Reportable Absolute Monocytes Not Reportable Absolute Eosinophils Not Reportable Absolute Basophils Not Reportable Carbonic Acid 2.69 H HCO3/H2CO3 Ratio 10:1 ABG pH 7.14 L* ABG pCO2 89.4 H* ABG pO2 87.3 ABG HCO3 29.4 H ABG O2 Saturation 92.9 L ABG Base Excess -1.6 FiO2 80% Sodium 134.5 L Potassium 4.7 Chloride 94 L Carbon Dioxide 30 Anion Gap 11 BUN 41 H Creatinine 1.76 H Est GFR ( Amer) 34 L Est GFR (Non-Af Amer) 28 L Glucose 261 H Lactic Acid Calcium 6.7 L* Magnesium Total Bilirubin AST ALT Alkaline Phosphatase Total Protein Albumin Urine Color Urine Appearance Urine pH Ur Specific [place] Urine Protein Urine Glucose (UA) Urine Ketones Urine Blood Urine Nitrite Ur Leukocyte Esterase Urine WBC (Auto) Urine RBC (Auto) 10/08/18 10/08/18 10/08/18 11:10 11:10 16:20 Troponin I 0.144 0.125 NT-Pro-B Natriuret Pep 67540 H 10/08/18 10/08/18 10/09/18 17:22 23:19 05:20 Troponin I 0.119 0.101 0.103 NT-Pro-B Natriuret Pep EKG Comments: EKG revealed sinus rhythm with first-degree block and nonspecific ST changes laterally Impressions: Chest X-Ray 10/09/18 00:00 IMPRESSION: Satisfactory position of the endotracheal and nasogastric tubes. Worsening air space opacities in the right lung copyright 2011 [facility] [employer] [place]- All Rights Reserved Assessment & Plan - Diagnosis (1) Septic shock due to undetermined organism Is this a current diagnosis for this admission?: Yes Plan: The patient is now on levo fed and Rohan-Synephrine. The levo fed dose is at its max (16 mcg/min). She is also on Rohan-Synephrine at 10 mg/h. 2 out of 2 blood cultures revealed gram-positive cocci in chains. She is on vancomycin and cefepime. Once final culture results are available we can narrow the spectrum of the antibiotics. In addition to her pneumonia a concern would be for vegetations on her aortic valve that was just replaced in February. (2) Elevated troponin Is this a current diagnosis for this admission?: Yes Plan: The initial troponin was 1.119. This is at the margin of positive for myocardial infarction. Her subsequent troponins decreased somewhat to 0.101 and 0.103. (3) Pneumonia Qualifiers: Pneumonia type: due to unspecified organism Laterality: right Lung lo cation: lower lobe of lung Qualified Code(s): J18.1 - Lobar pneumonia, unspecified organism Is this a current diagnosis for this admission?: Yes Plan: Patient has bilateral pneumonia. He is likely the same organism in her blood. We will continue the cefepime and vancomycin until sensitivities are obtained. As noted above due to her respiratory decline she has been intubated because of her worsening hypoxic hypercapnic respiratory failure. (4) Acute and chronic respiratory failure Qualifiers: Respiratory failure complication: hypoxia and hypercapnia Qualified Code(s): J96.21 - Acute and chronic respiratory failure with hypoxia; J96.22 - Acute and chronic respiratory failure with hypercapnia Is this a current diagnosis for this admission?: Yes Plan: Patient is currently intubated. Dr. Francis will be seeing the patient for pulmonology. At this point we are resuming propofol. We will try to keep her lightly sedated so as not to suppress any respiratory effort but also to prevent any significant agitation. (5) Lactic acidosis Is this a current diagnosis for this admission?: Yes Plan: A lactic acid for this morning is pending. She did receive 3 L of fluid. I expect the lactic acid to be improved. A blood gas is pending as well and she may require bicarbonate if her acidosis is worsening. This would be in addition to changes in her ventilator settings. (6) Acute cystitis Qualifiers: Hematuria presence: without hematuria Qualified Code(s): N30.00 - Acute cystitis without hematuria Is this a current diagnosis for this admission?: Yes Plan: Continue antibiotics as above. No culture results available yet. (7) Acute kidney injury Is this a current diagnosis for this admission?: Yes Plan: In talking to the family the patient has mentioned some "kidney issue "in the past. It is hard to know her exact history. At this point her GFR is approximately 28. Continue to monitor renal function. If this changes consider a nephrology consult. (8) Prolonged Q-T interval on ECG Is this a current diagnosis for this admission?: Yes Plan: Remains slightly elevated. Continue to monitor. - Time Time Spent with patient: 35 or more minutes Medications reviewed and adjusted accordingly: Yes
[2018-10-09 09:20] LABS: ARTERIAL BLOOD FIO2 80%
[2018-10-09] MEDS ORDERED: LIDOCAINE 1% INJ-PF (10 MG/ML) 30 ML SDV ONE (09:23)
[2018-10-09] MEDS: MIDAZOLAM HCL 50 MG/100 ML RTUINJ IV PRN ×3 (09:37→21:22)
[2018-10-09] MEDS: ASPIRIN 81 MG TABLET, ENT COATED PO SCH (09:38)
[2018-10-09] MEDS: GUAIFENESIN 600 MG TABLET.SA PO SCH ×2 (09:38→21:23)
[2018-10-09] MEDS ORDERED: NOREPINEPHRINE BITARTRATE INJ/PF 4 MG/4 ML SDV IV ONE (09:59)
[2018-10-09] MEDS ORDERED: RIVAROXABAN 10 MG TABLET PO SCH (10:00)
[2018-10-09] MEDS: NORMAL SALINE 500 ML with ROCURONIUM BROMIDE 500 MG IV PRN ×4 (10:00→21:22)
[2018-10-09] MEDS ORDERED: BUMETANIDE INJ/PF 1 MG/4 ML SDV IV PRN (10:00)
[2018-10-09 11:19] LABS: ARTERIAL BLOOD BASE EXCESS 5.8 mmol/L; ARTERIAL BLOOD H2CO3 1.24 mmol/L (1.05-1.35); ARTERIAL BLOOD HCO3 29.8 mmol/L (20-24); ARTERIAL BLOOD O2 SATURATION 95.5 % (94-98); ARTERIAL BLOOD PCO2 41.1 mmHg (35-45); ARTERIAL BLOOD PH 7.48 (7.35-7.45); ARTERIAL BLOOD PO2 72.3 mmHg (80-100)
--- NOTE | 2018-10-09 11:19 | RADIOLOGY REPORT (SQ) ---
EXAM DESCRIPTION: CHEST SINGLE VIEW COMPLETED DATE/TIME: 10/09/2018 11:08 am REASON FOR STUDY: check central line COMPARISON: Chest films 10/08/2018, 10/09/2018 309 hours EXAM PARAMETERS: NUMBER OF VIEWS: One view. TECHNIQUE: Single frontal radiographic view of the chest acquired. RADIATION DOSE: NA LIMITATIONS: None. FINDINGS: LUNGS AND PLEURA: Diffuse right-sided alveolar infiltrates worrisome for asymmetric pulmon milind edema. Patchy left perihilar and upper lobe airspace disease. These findings have progressed co mpared to 10/08/2018. No pneumothorax. No pleural effusions. MEDIASTINUM AND HILAR STRUCTURES: No masses. Contour normal. HEART AND VASCULAR STRUCTURES: No cardiomegaly. Old aortic valve replacement. BONES: No acute findings. HARDWARE: Endotracheal tube tip 3 cm above the helena. Nasogastric tube tip and side port in the sto mach. Right jugular and left-sided central venous catheters are present. Surgical clips post bilate ral mastectomy. OTHER: No other significant finding. IMPRESSION: Tubes and lines in good positioning. Persistent bilateral alveolar infiltrates worrisome for pulmonary edema. ARDS or pneumonia could marine ic this appearance. TECHNICAL DOCUMENTATION: JOB ID: [id number] [employer]- All Rights Reserved Reading location - IP/workstation name: [email or web address]
[2018-10-09] MEDS ORDERED: NORMAL SALINE INJ/PF 0.9% 10 ML SDV IV PRN (11:21)
--- NOTE | 2018-10-09 11:21 | Operative Report ---
Bedside Procedure - History of Present Illness Indication for Procedure: Septic shock requiring multiple access points with ability to draw bld Surgeon: MERCED ARITA - Central Line Internal jugular Time completed: 10:30 Consent obtained: Yes Central line pre-insertion: Sterile PPE donned, Chloraprep applied, Sterile drapes applied Central line size (Fr.): 7 Central line lumen type: Triple Anesthetic type: 1% Lidocaine mL's of anesthesia: 4 Ultrasound guided: Yes Line secured with sutures: Yes Central line post-insertion: Blood return from lumens, Biopatch applied, Sutured, Sterile dressing applied, Position confirmed w/ CXR Number of attempts: 1 Complications: No
[2018-10-09 11:27] LABS: ARTERIAL BLOOD FIO2 65%
[2018-10-09 11:57] LABS: ALBUMIN 2.4 g/dL (3.5-5.0); ANION GAP 10 (5-19); BLOOD UREA NITROGEN 43 mg/dL (7-20); CARBON DIOXIDE 30 mmol/L (22-30); CHLORIDE 93 mmol/L (98-107); GLUCOSE 296 mg/dL (75-110); PHOSPHORUS 3.2 mg/dL (2.5-4.5); POTASSIUM 4.2 mmol/L (3.6-5.0); SODIUM 132.8 mmol/L (137-145)
[2018-10-09 12:09] LABS: CREATINE KINASE MB 1.26 ng/mL (<4.55)
[2018-10-09 12:13] LABS: CALCIUM 6.8 mg/dL (8.4-10.2)
[2018-10-09 12:17] LABS: TROPONIN I 0.108 ng/mL
[2018-10-09 13:51] LABS: APPEARANCE,URINE CLOUDY; BILIRUBIN,URINE NEGATIVE (NEGATIVE); COLOR,URINE YELLOW; GLUCOSE, URINE 50 mg/dL (NEGATIVE); KETONES,URINE NEGATIVE (NEGATIVE); LEUKOCYTE ESTERASE,URINE NEGATIVE (NEGATIVE); NITRITE,URINE NEGATIVE (NEGATIVE); PROTEIN,URINE 30 mg/dL (NEGATIVE); URINE SPECIFIC GRAVITY 1.013; UROBILINOGEN,URINE NEGATIVE mg/dL (<2.0)
[2018-10-09] MEDS ORDERED: DEXTROSE 5%-WATER 250 ML with VASOPRESSIN 100 UNIT IV PRN ×2 (15:17)
[2018-10-09] MEDS ORDERED: VASOPRESSIN INJ 20 UNIT/1 ML VIAL ONE (15:21)
[2018-10-09] MEDS ORDERED: SUCCINYLCHOLINE CHLORIDE INJ 200 MG/10 ML VIAL ONE (15:53)
[2018-10-09 16:35] LABS: ANION GAP 10 (5-19); BLOOD UREA NITROGEN 45 mg/dL (7-20); CARBON DIOXIDE 30 mmol/L (22-30); CHLORIDE 94 mmol/L (98-107); GLUCOSE 271 mg/dL (75-110); POTASSIUM 4.4 mmol/L (3.6-5.0); SODIUM 133.5 mmol/L (137-145)
[2018-10-09] MEDS: CEFEPIME 1 GM/D5W RTU 1 GM/50 ML RTUPB IV SCH (17:31)
[2018-10-09] MEDS: ENOXAPARIN SODIUM INJ 100 MG/1 ML DISP.SYRIN SUBCUT SCH (21:23)
--- NOTE | 2018-10-09 21:38 | XCELERA REPORT ---
[address] [address] Transthoracic Echocardiogram Report Name: LISA GARDNER Age: 78 yrs Gender: Female : 1940 Patient Status: Inpatient Patient Location: ICU^[id number] Study Date: 10/09/2018 02:15 PM Height: 65 in Weight: 227 lb BSA: 2.1 m2 Procedure: A two-dimensional transthoracic echocardiogram with color flow and Doppler was performed. The study was technically difficult with many images being suboptimal in quality. Reason For Study: rule out gross vegetations on New aortic valve History: ENDOCARDITIS / AVR. Ordering Physician: MERCED ARITA Performed By: Jessenia Lopes Interpretation Summary Recommend antibiotics for SBE prophylaxis. The left ventricle is normal in size. There is normal left ventricular wall thickness. LV EF is 65% Left ventricular systolic function is normal. Doppler measurements suggest impaired left ventricular relaxation, which is associated with grade I/IV or mild diastolic dysfunction The left ventricular wall motion is normal. There is no thrombus. The right ventricle is normal in size and function. The right atrium is normal. The left atrium is moderately dilated. There is moderate to severe mitral annular calcification. Calcified mitral apparatus causing mitral stenosis. There is no evidence of mitral valve prolapse. There is a moderate size vegetation or mass on the mitral valve. There is mild mitral stenosis There is a severe amount of mitral regurgitation There is no aortic valvular vegetation. The prosthetic aortic valve is well-seated. No aortic regurgitation is present. There is a peak gradient of 21 mm of Hg. This is an acceptable graient for a Valve replaced by TAVR. There is no tricuspid stenosis. There is a severe amount of tricuspid regurgitation There is servere pulmonary hypertension by echo RVSP is at least 80 mm of Hg , with at least a RA mean of 20. There is no pulmonic valvular stenosis. There is a mild to moderate amount of pulmonic regurgitation The aortic root is normal size. The inferior vena cava appeared dilated and did not change with respiration (RAP > 20 mmHg) Small right sided pericardial effusion. There are no echocardiographic or Doppler indications for cardiac tamponade Recommend antibiotics for SBE prophylaxis. MMode/2D Measurements & Calculations RVDd: 2.2 cm LVIDd: 3.8 cm FS: 41.0 % Ao root diam: 2.2 cm IVSd: 1.1 cm LVIDs: 2.3 cm EDV(Teich): 63.8 ml Ao root area: 3.9 cm2 LVPWd: 1.1 cm ESV(Teich): 17.5 ml LA dimension: 4.3 cm EF(Teich): 72.5 % Doppler Measurements & Calculations MV E max klever: MV P1/2t max klever: Ao V2 max: LV V1 max P.7 cm/sec 169.7 cm/sec 228.3 cm/sec 2.6 mmHg MV A max klever: MV P1/2t: 102.8 msec Ao max PG: LV V1 max: 196.8 cm/sec MVA(P1/2t): 2.1 cm2 20.9 mmHg 80.9 cm/sec MV E/A: 0.86 MV dec slope: 483.3 cm/sec2 MV dec time: 0.35 sec PA V2 max: PI end-d klever: TR max klever: MV P1/2t-pr_phl: 159.2 cm/sec 148.0 cm/sec 386.9 cm/sec 102.8 msec PA max PG: TR max P.1 mmHg 59.9 mmHg Left Ventricle The left ventricle is normal in size. There is normal left ventricular wall thickness. LV EF is 65%. Left ventricular systolic function is normal. Doppler measurements suggest impaired left ventricular relaxation, which is associated with grade I/IV or mild diastolic dysfunction. The left ventricular wall motion is normal. There is no thrombus. Right Ventricle The right ventricle is normal in size and function. Atria The right atrium is normal. The left atrium is moderately dilated. Mitral Valve There is moderate to severe mitral annular calcification. Calcified mitral apparatus causing mitral stenosis. There is no evidence of mitral valve prolapse. There is a moderate size vegetation or mass on the mitral valve. There is mild mitral stenosis. There is a severe amount of mitral regurgitation. Aortic Valve There is no aortic valvular vegetation. There is a peak gradient of 21 mm of Hg. This is an acceptable graient for a Valve replaced by TAVR. No aortic regurgitation is present. The prosthetic aortic valve is well-seated. Tricuspid Valve There is no tricuspid stenosis. There is a severe amount of tricuspid regurgitation. There is servere pulmonary hypertension by echo. RVSP is at least 80 mm of Hg , with at least a RA mean of 20. Pulmonic Valve There is no pulmonic valvular stenosis. There is a mild to moderate amount of pulmonic regurgitation. Great Vessels The aortic root is normal size. The inferior vena cava appeared dilated and did not change with respiration (RAP > 20 mmHg). Effusions Small right sided pericardial effusion. There are no echocardiographic or Doppler indications for cardiac tamponade. : MERCED ARITA > Crystal Suarez
[2018-10-10] MEDS: IPRATROPIUM/ALBUTEROL 0.5-2.5 MG/3 ML AMPUL NEB SCH ×2 (01:23→08:32)
[2018-10-10] MEDS ORDERED: NORMAL SALINE 1000 ML 1,000 ML IV ONE (03:00)
[2018-10-10 04:12] LABS: ARTERIAL BLOOD BASE EXCESS -1.9 mmol/L; ARTERIAL BLOOD H2CO3 1.04 mmol/L (1.05-1.35); ARTERIAL BLOOD HCO3 22.1 mmol/L (20-24); ARTERIAL BLOOD O2 SATURATION 94.9 % (94-98); ARTERIAL BLOOD PCO2 34.4 mmHg (35-45); ARTERIAL BLOOD PH 7.43 (7.35-7.45); ARTERIAL BLOOD PO2 71.6 mmHg (80-100); ARTERIAL BLOOD TOTAL CO2 23.1 mmol/L (21-25)
[2018-10-10 04:15] LABS: ARTERIAL BLOOD FIO2 50%
[2018-10-10 04:17] LABS: HEMATOCRIT 25.2 % (36.0-47.0); HEMOGLOBIN 8.2 g/dL (12.0-15.5); MEAN CORPUSCULAR HEMOGLOBIN 29.3 pg (27.0-33.4); MEAN CORPUSCULAR HGB CONC 32.6 g/dL (32.0-36.0); MEAN CORPUSCULAR VOLUME 90 fl (80-97); RED CELL DISTRIBUTION WIDTH 16.6 % (11.5-14.0); WHITE BLOOD COUNT 15.2 10^3/uL (4.0-10.5)
[2018-10-10 04:30] LABS: ANION GAP 14 (5-19); BLOOD UREA NITROGEN 54 mg/dL (7-20); CARBON DIOXIDE 24 mmol/L (22-30); CHLORIDE 96 mmol/L (98-107); GLUCOSE 372 mg/dL (75-110); POTASSIUM 4.5 mmol/L (3.6-5.0)
[2018-10-10 04:37] LABS: PLATELET COUNT 70 10^3/uL (150-450)
[2018-10-10 04:39] LABS: ABSOLUTE LYMPHOCYTES# (MANUAL) 0.3 10^3/uL (0.5-4.7); ABSOLUTE MONOCYTES # (MANUAL) 0.8 10^3/uL (0.1-1.4); ABSOLUTE NEUTROPHILS# (MANUAL) 14.1 10^3/uL (1.7-8.2); BASOPHILS % (MANUAL) 0 % (0-2); EOSINOPHILS % (MANUAL) 0 % (0-6); LYMPHOCYTES % (MANUAL) 2 % (13-45); MONOCYTES % (MANUAL) 5 % (3-13); NUCLEATED RED BLOOD CELLS 1 /100 WBC (0); SEGMENTED NEUTROPHILS % (MAN) 93 % (42-78); TOTAL CELLS COUNTED 100
[2018-10-10 04:41] LABS: ANISOCYTOSIS 1+; CALCIUM 6.5 mg/dL (8.4-10.2); PLATELET COMMENT DECREASED; POLYCHROMASIA 1+
[2018-10-10] MEDS: METHYLPREDNISOLONE INJ 125 MG/2 ML SDV IV SCH (05:08)
[2018-10-10] MEDS: CEFEPIME 1 GM/D5W RTU 1 GM/50 ML RTUPB IV SCH (05:08)
[2018-10-10] MEDS: LANSOPRAZOLE 30 MG TAB.RAP.DR PO SCH (05:08)
[2018-10-10] MEDS: LEVOTHYROXINE SODIUM 0.025 MG TABLET PO SCH (05:08)
[2018-10-10] MEDS ORDERED: VANCOMYCIN HCL 1,250 MG in DEXTROSE 5%-WATER 250 ML IV SCH (06:00)
[2018-10-10] MEDS: BUDESONIDE NEB 0.5 MG/2 ML AMPUL NEB SCH (08:32)
[2018-10-10] MEDS ORDERED: BISACODYL 10 MG SUPP.RECT PR PRN (09:15)
[2018-10-10] MEDS ORDERED: BISACODYL 5 MG TABEC PO PRN (09:15)
[2018-10-10] MEDS ORDERED: BUMETANIDE INJ/PF 1 MG/4 ML SDV IV SCH (09:15)
--- NOTE | 2018-10-10 09:25 | PDOC PROGRESS REPORT ---
Subjective Progress Note for:: 10/10/18 Subjective:: The patient's facial expression suggest discomfort. She still requires pressor therapy. Urine output has declined. Reason For Visit: PNEUMONIA Physical Exam Vital Signs: Temp Pulse Resp BP Pulse Ox 99.0 F 91 20 116/59 L 96 10/10/18 08:00 10/10/18 08:34 10/10/18 08:34 10/10/18 08:00 10/10/18 08:34 Intake & Output 10/09/18 10/10/18 10/11/18 06:59 06:59 06:59 Intake Total 4892 3273 Output Total 990 100 Balance 4892 2283 -100 Weight 103 kg 105.2 kg General appearance: PRESENT: mild distress, morbidly obese, well-developed, other - Intubated Head exam: PRESENT: atraumatic, normocephalic Eye exam: PRESENT: conjunctiva pale. ABSENT: conjunctival injection, scleral icterus Ear exam: PRESENT: normal external ear exam Mouth exam: PRESENT: dry mucosa, other - Endotracheal and orogastric tube in place Neck exam: ABSENT: carotid bruit, lymphadenopathy, tracheostomy Respiratory exam: PRESENT: decreased breath sounds, wheezes - Faint intermittent expiratory wheeze on the left, other - Currently not breathing above the ventilator Cardiovascular exam: PRESENT: +S1, +S2, systolic murmur - 3/6, tachycardia GI/Abdominal exam: PRESENT: hypoactive bowel sounds, soft. ABSENT: tenderness Gentrourinary exam: PRESENT: indwelling catheter Extremities exam: PRESENT: +1 edema Neurological exam: PRESENT: other - Opens eyes to verbal stimulus. Unable to maintain eye contact. Psychiatric exam: PRESENT: flat affect. ABSENT: agitated, anxious Focused psych exam: ABSENT: restlessness Results Laboratory Results: 10/10/18 04:00 10/10/18 04:00 10/09/18 10/09/18 10/09/18 09:00 11:10 11:20 WBC RBC Hgb Hct MCV MCH MCHC RDW Plt Count Seg Neutrophils % Lymphocytes % Monocytes % Eosinophils % Basophils % Absolute Neutrophils Absolute Lymphocytes Absolute Monocytes Absolute Eosinophils Absolute Basophils Carbonic Acid 1.75 H 1.24 HCO3/H2CO3 Ratio 18:1 24:1 ABG pH 7.35 7.48 H ABG pCO2 58.3 H 41.1 ABG pO2 81.8 72.3 L ABG HCO3 31.8 H 29.8 H ABG O2 Saturation 95.3 95.5 ABG Base Excess 5.0 5.8 FiO2 80% 65% Sodium 132.8 L Potassium 4.2 Chloride 93 L Carbon Dioxide 30 Anion Gap 10 BUN 43 H Creatinine 1.84 H Est GFR ( Amer) 32 L Est GFR (Non-Af Amer) 27 L Glucose 296 H Lactic Acid Calcium 6.8 L* Phosphorus 3.2 Albumin 2.4 L Urine Color Urine Appearance Urine pH Ur Specific [place] Urine Protein Urine Glucose (UA) Urine Ketones Urine Blood Urine Nitrite Ur Leukocyte Esterase Urine WBC (Auto) Urine RBC (Auto) 10/09/18 10/09/18 10/09/18 11:20 11:40 11:40 WBC RBC Hgb Hct MCV MCH MCHC RDW Plt Count Seg Neutrophils % Lymphocytes % Monocytes % Eosinophils % Basophils % Absolute Neutrophils Absolute Lymphocytes Absolute Monocytes Absolute Eosinophils Absolute Basophils Carbonic Acid HCO3/H2CO3 Ratio ABG pH ABG pCO2 ABG pO2 ABG HCO3 ABG O2 Saturation ABG Base Excess FiO2 Sodium Cancelled Potassium Cancelled Chloride Cancelled Carbon Dioxide Cancelled Anion Gap Cancelled BUN Cancelled Creatinine Cancelled Est GFR ( Amer) Cancelled Est GFR (Non-Af Amer) Cancelled Glucose Cancelled Lactic Acid Cancelled 2.8 H Calcium Cancelled Phosphorus Albumin Urine Color Urine Appearance Urine pH Ur Specific [place] Urine Protein Urine Glucose (UA) Urine Ketones Urine Blood Urine Nitrite Ur Leukocyte Esterase Urine WBC (Auto) Urine RBC (Auto) 10/09/18 10/09/18 10/09/18 13:23 16:00 16:00 WBC RBC Hgb Hct MCV MCH MCHC RDW Plt Count Seg Neutrophils % Lymphocytes % Monocytes % Eosinophils % Basophils % Absolute Neutrophils Absolute Lymphocytes Absolute Monocytes Absolute Eosinophils Absolute Basophils Carbonic Acid HCO3/H2CO3 Ratio ABG pH ABG pCO2 ABG pO2 ABG HCO3 ABG O2 Saturation ABG Base Excess FiO2 Sodium 133.5 L Potassium 4.4 Chloride 94 L Carbon Dioxide 30 Anion Gap 10 BUN 45 H Creatinine 1.78 H Est GFR ( Amer) 34 L Est GFR (Non-Af Amer) 28 L Glucose 271 H Lactic Acid 2.4 H Calcium 7.0 L* Phosphorus Albumin Urine Color YELLOW Urine Appearance CLOUDY Urine pH 5.0 Ur Specific [place] 1.013 Urine Protein 30 H Urine Glucose (UA) 50 H Urine Ketones NEGATIVE Urine Blood SMALL H Urine Nitrite NEGATIVE Ur Leukocyte Esterase NEGATIVE Urine WBC (Auto) 3 Urine RBC (Auto) 2 10/09/18 10/10/18 10/10/18 16:00 04:00 04:00 WBC RBC Hgb Hct MCV MCH MCHC RDW Plt Count Seg Neutrophils % Lymphocytes % Monocytes % Eosinophils % Basophils % Absolute Neutrophils Absolute Lymphocytes Absolute Monocytes Absolute Eosinophils Absolute Basophils Carbonic Acid 1.04 L HCO3/H2CO3 Ratio 21:1 ABG pH 7.43 ABG pCO2 34.4 L ABG pO2 71.6 L ABG HCO3 22.1 ABG O2 Saturation 94.9 ABG Base Excess -1.9 FiO2 50% Sodium 134.0 L Potassium 4.5 Chloride 96 L Carbon Dioxide 24 Anion Gap 14 BUN 54 H Creatinine 2.15 H Est GFR ( Amer) 27 L Est GFR (Non-Af Amer) 22 L Glucose 372 H Lactic Acid Calcium 6.5 L* Phosphorus Albumin 2.3 L Urine Color Urine Appearance Urine pH Ur Specific [place] Urine Protein Urine Glucose (UA) Urine Ketones Urine Blood Urine Nitrite Ur Leukocyte Esterase Urine WBC (Auto) Urine RBC (Auto) 10/10/18 04:00 WBC 15.2 H RBC 2.80 L Hgb 8.2 L Hct 25.2 L MCV 90 MCH 29.3 MCHC 32.6 RDW 16.6 H Plt Count 70 L Seg Neutrophils % Not Reportable Lymphocytes % Not Reportable Monocytes % Not Reportable Eosinophils % Not Reportable Basophils % Not Reportable Absolute Neutrophils Not Reportable Absolute Lymphocytes Not Reportable Absolute Monocytes Not Reportable Absolute Eosinophils Not Reportable Absolute Basophils Not Reportable Carbonic Acid HCO3/H2CO3 Ratio ABG pH ABG pCO2 ABG pO2 ABG HCO3 ABG O2 Saturation ABG Base Excess FiO2 Sodium Potassium Chloride Carbon Dioxide Anion Gap BUN Creatinine Est GFR ( Amer) Est GFR (Non-Af Amer) Glucose Lactic Acid Calcium Phosphorus Albumin Urine Color Urine Appearance Urine pH Ur Specific [place] Urine Protein Urine Glucose (UA) Urine Ketones Urine Blood Urine Nitrite Ur Leukocyte Esterase Urine WBC (Auto) Urine RBC (Auto) 10/08/18 10/08/18 10/08/18 11:10 11:10 16:20 Creatine Kinase CK-MB (CK-2) Troponin I 0.144 0.125 NT-Pro-B Natriuret Pep 03275 H 10/08/18 10/08/1810/09/18 17:22 23:19 05:20 Creatine Kinase CK-MB (CK-2) Troponin I 0.119 0.101 0.103 NT-Pro-B Natriuret Pep 10/09/18 10/09/18 10/09/18 11:20 11:20 16:00 Creatine Kinase 22 L CK-MB (CK-2) 1.26 Troponin I 0.108 0.121 NT-Pro-B Natriuret Pep Impressions: Chest X-Ray 10/09/18 00:00 IMPRESSION: Tubes and lines in good positioning. Persistent bilateral alveolar infiltrates worrisome for pulmonary edema. ARDS or pneumonia could mimic this appearance. Assessment & Plan - Diagnosis (1) Septic shock due to undetermined organism Is this a current diagnosis for this admission?: Yes Plan: Still on dual antibiotic therapy. Microbiology still pending. Preliminary resu lts reveal gram-positive cocci in chains. This usually indicates a Streptococcus organism. Await final results before tapering antibiotic therapy. I will stop the cefepime as there is no evidence of gram-negative bacilli. (2) Elevated troponin Is this a current diagnosis for this admission?: Yes Plan: Troponins are marginal. This is likely due to physiologic strain. (3) Pneumonia Qualifiers: Pneumonia type: due to unspecified organism Laterality: right Lung location: lower lobe of lung Qualified Code(s): J18.1 - Lobar pneumonia, unspecified organism Is this a current diagnosis for this admission?: Yes Plan: Most likely combination of her congestive heart failure worsening bacterial pneumonia. As noted above the most likely organism is the gram-positive cocci in chains. She is on vancomycin. Awaiting final results. (4) Acute and chronic respiratory failure Qualifiers: Respiratory failure complication: hypoxia and hypercapnia Qualified Code(s): J96.21 - Acute and chronic respiratory failure with hypoxia; J96.22 - Acute and chronic respiratory failure with hypercapnia Is this a current diagnosis for this admission?: Yes Plan: Currently intubated. She is on SIMV mode. She is not breathing above the set rate. Please also see pulmonary note. Dr. Francis is following. A repeat chest x-ray is ordered for today. (5) Lactic acidosis Is this a current diagnosis for this admission?: Yes Plan: Most recent lactic acid was only 2.4. I will repeat level tomorrow. (6) Acute cystitis Qualifiers: Hematuria presence: without hematuria Qualified Code(s): N30.00 - Acute cystitis without hematuria Is this a current diagnosis for this admission?: Yes Plan: Gram-positive cocci in chains. Currently on vancomycin. Awaiting final culture results. (7) Acute on chronic kidney failure Qualifiers: Acute renal failure type: unspecified Chronic kidney disease stage: stage 3 (moderate) Qualified Code(s): N17.9 - Acute kidney failure, unspecified; N18.3 - Chronic kidney disease, stage 3 (moderate) Is this a current diagnosis for this admission?: Yes Plan: GFR on admission was 33. It is down to 22. Urine output has dropped. I will give her 4 mg of Bumex x1 dose today and a daily dose of 1 mg. We will monitor her renal function and electrolytes. (8) Prolonged Q-T interval on ECG Is this a current diagnosis for this admission?: Yes Plan: Remains slightly elevated. Continue to monitor. This could be chronic. - Time Time Spent with patient: 25-34 minutes Medications reviewed and adjusted accordingly: Yes
[2018-10-10] MEDS ORDERED: BUMETANIDE INJ/PF 1 MG/4 ML SDV IV ONE (09:30)
--- NOTE | 2018-10-10 09:45 | RADIOLOGY REPORT (SQ) ---
EXAM DESCRIPTION: CHEST SINGLE VIEW COMPLETED DATE/TIME: 10/10/2018 9:30 am REASON FOR STUDY: resp failure, pneum COMPARISON: 10/09/2018 EXAM PARAMETERS: NUMBER OF VIEWS: One view TECHNIQUE: Single frontal radiograph of the chest. RADIATION DOSE: N/A LIMITATIONS: None. FINDINGS: TEMPORARY SUPPORT DEVICES:ETT in expected location. NG tube courses below the dolores-diaphr agm in to the stomach. Venous access catheters via right IJ and left subclavian approach. Tips in th e superior vena cava. LUNGS AND PLEURA: Focal parenchymal opacities on the right are slightly decreased. Left lung remains clear. No effusions. No masses. No pneumothorax. MEDIASTINUM AND HILAR STRUCTURES: No masses. Contour normal. HEART AND VASCULAR STRUCTURES: Heart normal in size. normal vascularity. Aortic stent graft. BONES: No acute findings. OTHER: No other significant finding. IMPRESSION: Mild improvement in right lung opacities. Otherwise stable appearance. SUPPORT DEVICE(S) IN EXPECTED LOCATIONS. TECHNICAL DOCUMENTATION: JOB ID: [id number] [employer]- All Rights Reserved Reading location - IP/workstation name: [email or web address]
[2018-10-10] MEDS ORDERED: POLYETHYLENE GLYCOL 3350 POWDER 17 GM/1 PACKET PO SCH (10:00)
[2018-10-10 10:29] VITALS: BP 124/64
[2018-10-10] MEDS: ASPIRIN 81 MG TABLET, ENT COATED PO SCH (10:52)
[2018-10-10] MEDS: GUAIFENESIN 600 MG TABLET.SA PO SCH (10:52)
[2018-10-10] MEDS: ENOXAPARIN SODIUM INJ 100 MG/1 ML DISP.SYRIN SUBCUT SCH (10:52)
[2018-10-10] MEDS ORDERED: DOCUSATE SODIUM 100 MG/10 ML UDC PO SCH (11:00)
--- NOTE | 2018-10-10 15:57 | Death Summary ---
Summary Date : 10/10/18 Time of :: : Autopsy: No Resuscitation Status: Comfort Measures Only - Due to the continued decline despite extremely aggressive treatment regimen the patient's family made the decision to change her status to comfort care only. Primary Care Provider: Hospitalist service-Dr. Ugrate Consulting Provider: Dr. Francis-pulmonology - Final Diagnosis (1) Septic shock due to undetermined organism Is this a current diagnosis for this admission?: Yes (2) Elevated troponin Is this a current diagnosis for this admission?: Yes (3) Pneumonia Is this a current diagnosis for this admission?: Yes (4) Acute and chronic respiratory failure Is this a current diagnosis for this admission?: Yes (5) Lactic acidosis Is this a current diagnosis for this admission?: Yes (6) Acute cystitis Is this a current diagnosis for this admission?: Yes (7) Acute on chronic kidney failure Is this a current diagnosis for this admission?: Yes (8) Prolonged Q-T interval on ECG Is this a current diagnosis for this admission?: Yes Hospital Course:: The patient initially presented the patient initially presented with a right lower lobe pneumonia and moderate dyspnea. During the first night of her admission she worsened and developed acute hypoxic hypercapnic respiratory failure requiring intubation. Subsequent x-ray revealed worsening of her pneumonia. She was in septic shock and required multiple pressors. Repeat est x-ray in fact showed worsening with expansion of the pneumonia to both sides. Blood cultures were positive for gram positive cocci in chains. She was on dual antibiotic therapy including vancomycin. Today the cultures identified Enterococcus faecalis that was sensitive to vancomycin. In addition she has chronic kidney disease. It was borderline stage III but progressed to stage IV during this hospitalization. 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 An echocardiogram was performed to possibly see if there are any vegetations. The echocardiogram revealed significant tricuspid and mitral regurgitation as well as a large growth on the mitral valve leaflet. Changes were made in her cardiac regimen to try and maintain appropriate blood pressure without as much peripheral vasoconstriction. At no point was the patient able to wean from full ventilatory support. Each day I would have a discussion with the patient's son. The me and the interpreting broker assistant for the echocardiogram spoke to the patient's son after the echocardiogram. There was a consistent message that the patient was declining. Last night the patient had a spontaneous episode of bradycardia. She did respond slowly on her own. This morning she began to have other episodes of bradycardia. I did go to the waiting room and spoke to the patient's son and his . I expressed my concern that the patient was not getting any better but rather exhibiting worsening cardiac status. In light of no further surgical options per her cardiothoracic surgeon and the fact that she appeared quite uncomfortable the family decided to withdraw aggressive support and made the patient comfort care only. At approximately 12:05 the patient was terminally extubated and at 12: 22. Family was at the bedside.
[2018-10-11] MEDS ORDERED: BUMETANIDE INJ/PF 1 MG/4 ML SDV IV SCH (10:00)
--- NOTE | 2018-10-19 11:46 | PDOC CONSULTATION ---
Consultation Consult Date: 10/09/18 Attending physician:: MERCED RAITA Consult reason:: Acute/chronic respiratory failure; sepsis History of Present Illness Admission Date/PCP: 10/08/18 14:12 History of Present Illness: LISA GARDNER is a 78 year old female progressed to shortness of breath over the last 7days presented hypotensive with leukocytosis and a fever and profoundly tachycardic she is status post a second round of chemotherapy and is status post bilateral vasectomy 1st in 2011 and another 2015. Duration patient was hypoxic and hypercapnic and subsequently was intubated and is currently in the ICU intubated and sedated. She is also being maintained on vasopressor agents Past Medical History Cardiac Medical History: Reports: Atrial Fibrillation Pulmonary Medical History: Reports: Chronic Obstructive Pulmonary Disease (COPD) - w/ 2LNC home 02 EENT Medical History: Denies: Eyes, Ears, Nose, Throat Neurological Medical History: Reports: None Endocrine Medical History: Reports: Hypothyroidism Renal/ Medical History: Denies: Chronic Kidney Disease Malignancy Medical History: Reports: Bone Cancer, Breast Cancer GI Medical History: Reports: None Musculoskeltal Medical History: Reports: Arthritis, Other - Bone metastases Skin Medical History: Reports: None Psychiatric Medical History: Denies: Alcohol Dependency, Depression Traumatic Medical History: Reports: None Hematology: Denies: Anemia, Bleeding Tendencies Infectious Medical History: Reports: None Past Surgical History Past Surgical History: Reports: Mastectomy - bilateral, Orthopedic Surgery - Right ankle fracture repair, Tubal Ligation, Valve Replacement Social History Lives with: Alone Smoking Status: Unknown if Ever Smoked Frequency of Alcohol Use: None Hx Recreational Drug Use: No Drugs: None Hx Prescription Drug Abuse: No - Advance Directive Resuscitation Status: Full Code Family History Family History: CAD - Father, Malignancy - Both grandfathers, 1 brother Parental Family History Reviewed: No Children Family History Reviewed: No Sibling(s) Family History Reviewed.: No Medication/Allergy Home Medications: Alprazolam [Xanax 0.25 mg Tablet] 0.25 mg PO Q8HP PRN 10/08/18 Aspirin [Ecotrin 81 mg EC Tablet] 81 mg PO DAILY 10/08/18 Furosemide [Lasix 40 mg Tablet] 40 mg PO DAILY 10/08/18 Levothyroxine Sodium [Synthroid 0.025 mg Tablet] 0.025 mg PO Q6AM 10/08/18 Pantoprazole Sodium [Protonix] 40 mg PO DAILY 10/08/18 Rivaroxaban [Xarelto] 20 mg PO DAILY 10/08/18 Umeclidinium Brm/Vilanterol Tr [Anoro Ellipta 62.5-25 Mcg INH] 1 each IH DAILY 10/08/18 Allergies/Adverse Reactions: Penicillins Allergy (Verified 10/08/18 12:10) Review of Systems ROS unobtainable: Due to endotracheal tube Physical Exam Vital Signs: Temp Pulse Resp BP Pulse Ox 97.7 F 65 18 104/68 97 10/09/18 08:00 10/09/18 08:00 10/09/18 08:00 10/09/18 08:00 10/09/18 08:00 Intake & Output 10/08/18 10/09/18 10/10/18 06:59 06:59 06:59 Intake Total 4892 469 Output Total 150 Balance 4892 319 Weight 103 kg General appearance: PRESENT: no acute distress, disheveled, morbidly obese. ABSENT: cooperative Head exam: PRESENT: atraumatic, normocephalic Eye exam: PRESENT: conjunctiva pale. ABSENT: nystagmus, scleral icterus Mouth exam: PRESENT: dry mucosa, neck supple, tongue midline, other - ET tube Neck exam: ABSENT: carotid bruit, JVD, lymphadenopathy, thyromegaly, tracheal deviation, tracheostomy Respiratory exam: PRESENT: decreased breath sounds, prolonged expiratory phas, rales, rhonchi, unlabored. ABSENT: retraction, stridor, tachypnea Cardiovascular exam: PRESENT: RRR, +S1, +S2 Pulses: PRESENT: normal radial pulses GI/Abdominal exam: PRESENT: soft. ABSENT: tenderness Extremities exam: PRESENT: pedal edema. ABSENT: calf tenderness, clubbing, joint swelling Musculoskeletal exam: ABSENT: deformity, dislocation Neurological exam: ABSENT: awake Skin exam: PRESENT: dry, warm Results Laboratory Results: 10/09/18 05:20 10/09/18 05:20 10/08/18 10/08/18 10/08/18 11:10 11:10 12:40 WBC 26.0 H RBC 3.58 L Hgb 10.3 L Hct 33.2 L MCV 93 MCH 28.9 MCHC 31.1 L RDW 16.7 H Plt Count 145 L Seg Neutrophils % Not Reportable Lymphocytes % Not Reportable Monocytes % Not Reportable Eosinophils % Not Reportable Basophils % Not Reportable Absolute Neutrophils Not Reportable Absolute Lymphocytes Not Reportable Absolute Monocytes Not Reportable Absolute Eosinophils Not Reportable Absolute Basophils Not Reportable Carbonic Acid 1.78 H HCO3/H2CO3 Ratio 17:1 ABG pH 7.35 ABG pCO2 59.3 H ABG pO2 91.8 ABG HCO3 31.6 H ABG O2 Saturation 96.4 ABG Base Excess 4.8 FiO2 40% Sodium 138.1 Potassium 4.2 Chloride 94 L Carbon Dioxide 26 Anion Gap 18 BUN 30 H Creatinine 1.55 H Est GFR ( Amer) 39 L Est GFR (Non-Af Amer) 33 L Glucose 246 H Lactic Acid Calcium 8.0 L Magnesium Total Bilirubin 1.2 AST 78 H ALT 53 H Alkaline Phosphatase 117 Total Protein 7.3 Albumin 3.2 L Urine Color Urine Appearance Urine pH Ur Specific [place] Urine Protein Urine Glucose (UA) Urine Ketones Urine Blood Urine Nitrite Ur Leukocyte Esterase Urine WBC (Auto) Urine RBC (Auto) 10/08/18 10/08/18 10/08/18 13:00 15:50 16:20 WBC RBC Hgb Hct MCV MCH MCHC RDW Plt Count Seg Neutrophils % Lymphocytes % Monocytes % Eosinophils % Basophils % Absolute Neutrophils Absolute Lymphocytes Absolute Monocytes Absolute Eosinophils Absolute Basophils Carbonic Acid HCO3/H2CO3 Ratio ABG pH ABG pCO2 ABG pO2 ABG HCO3 ABG O2 Saturation ABG Base Excess FiO2 Sodium Potassium Chloride Carbon Dioxide Anion Gap BUN Creatinine Est GFR ( Amer) Est GFR (Non-Af Amer) Glucose Lactic Acid 3.8 H 4.3 H Calcium Magnesium Total Bilirubin AST ALT Alkaline Phosphatase Total Protein Albumin Urine Color DARK YELLOW Urine Appearance CLOUDY Urine pH 5.0 Ur Specific [place] 1.020 Urine Protein 100 H Urine Glucose (UA) NEGATIVE Urine Ketones NEGATIVE Urine Blood SMALL H Urine Nitrite NEGATIVE Ur Leukocyte Esterase MODERATE H Urine WBC (Auto) 175 Urine RBC (Auto) 8 10/08/18 10/08/18 10/08/18 17:22 17:22 17:22 WBC RBC Hgb Hct MCV MCH MCHC RDW Plt Count Seg Neutrophils % Lymphocytes % Monocytes % Eosinophils % Basophils % Absolute Neutrophils Absolute Lymphocytes Absolute Monocytes Absolute Eosinophils Absolute Basophils Carbonic Acid HCO3/H2CO3 Ratio ABG pH ABG pCO2 ABG pO2 ABG HCO3 ABG O2 Saturation ABG Base Excess FiO2 Sodium 136.7 L Potassium 4.6 Chloride 98 Carbon Dioxide 29 Anion Gap 10 BUN 32 H Creatinine 1.45 H Est GFR ( Amer) 42 L Est GFR (Non-Af Amer) 35 L Glucose 181 H Lactic Acid Cancelled 2.8 H Calcium 7.5 L Magnesium 1.7 Total Bilirubin AST ALT Alkaline Phosphatase Total Protein Albumin Urine Color Urine Appearance Urine pH Ur Specific [place] Urine Protein Urine Glucose (UA) Urine Ketones Urine Blood Urine Nitrite Ur Leukocyte Esterase Urine WBC (Auto) Urine RBC (Auto) 10/09/18 10/09/18 10/09/18 02:15 05:20 05:20 WBC 28.0 H RBC 3.29 L Hgb 9.5 L Hct 29.7 L MCV 90 MCH 28.9 MCHC 32.0 RDW 16.6 H Plt Count 106 L Seg Neutrophils % Not Reportable Lymphocytes % Not Reportable Monocytes % Not Reportable Eosinophils % Not Reportable Basophils % Not Reportable Absolute Neutrophils Not Reportable Absolute Lymphocytes Not Reportable Absolute Monocytes Not Reportable Absolute Eosinophils Not Reportable Absolute Basophils Not Reportable Carbonic Acid 2.69 H HCO3/H2CO3 Ratio 10:1 ABG pH 7.14 L* ABG pCO2 89.4 H* ABG pO2 87.3 ABG HCO3 29.4 H ABG O2 Saturation 92.9 L ABG Base Excess -1.6 FiO2 80% Sodium 134.5 L Potassium 4.7 Chloride 94 L Carbon Dioxide 30 Anion Gap 11 BUN 41 H Creatinine 1.76 H Est GFR ( Amer) 34 L Est GFR (Non-Af Amer) 28 L Glucose 261 H Lactic Acid Calcium 6.7 L* Magnesium Total Bilirubin AST ALT Alkaline Phosphatase Total Protein Albumin Urine Color Urine Appearance Urine pH Ur Specific [place] Urine Protein Urine Glucose (UA) Urine Ketones Urine Blood Urine Nitrite Ur Leukocyte Esterase Urine WBC (Auto) Urine RBC (Auto) 10/09/18 09:00 WBC RBC Hgb Hct MCV MCH MCHC RDW Plt Count Seg Neutrophils % Lymphocytes % Monocytes % Eosinophils % Basophils % Absolute Neutrophils Absolute Lymphocytes Absolute Monocytes Absolute Eosinophils Absolute Basophils Carbonic Acid 1.75 H HCO3/H2CO3 Ratio 18:1 ABG pH 7.35 ABG pCO2 58.3 H ABG pO2 81.8 ABG HCO3 31.8 H ABG O2 Saturation 95.3 ABG Base Excess 5.0 FiO2 80% Sodium Potassium Chloride Carbon Dioxide Anion Gap BUN Creatinine Est GFR ( Amer) Est GFR (Non-Af Amer) Glucose Lactic Acid Calcium Magnesium Total Bilirubin AST ALT Alkaline Phosphatase Total Protein Albumin Urine Color Urine Appearance Urine pH Ur Specific [place] Urine Protein Urine Glucose (UA) Urine Ketones Urine Blood Urine Nitrite Ur Leukocyte Esterase Urine WBC (Auto) Urine RBC (Auto) 10/08/18 10/08/18 10/08/18 11:10 11:10 16:20 Troponin I 0.144 0.125 NT-Pro-B Natriuret Pep 73644 H 10/08/18 10/08/18 10/09/18 17:22 23:19 05:20 Troponin I 0.119 0.101 0.103 NT-Pro-B Natriuret Pep Impressions: Chest X-Ray 10/09/18 00:00 IMPRESSION: Satisfactory position of the endotracheal and nasogastric tubes. Worsening air space opacities in the right lung copyright 2011 [employer]- All Rights Reserved Assessment & Plan - Diagnosis (1) Acute and chronic respiratory failure Qualifiers: Respiratory failure complication: hypoxia and hypercapnia Qualified Code(s): J96.21 - Acute and chronic respiratory failure with hypoxia; J96.22 - Acute and chronic respiratory failure with hypercapnia Is this a current diagnosis for this admission?: Yes Plan: Oxygenate and ventilate needed (2) Pneumonia Qualifiers: Pneumonia type: due to unspecified organism Laterality: right Lung location: lower lobe of lung Qualified Code(s): J18.1 - Lobar pneumonia, unspecified organism Is this a current diagnosis for this admission?: Yes Plan: Treat her pneumonia as hospital-acquired pneumonia patient is immunocompromise (3) Septic shock due to undetermined organism Is this a current diagnosis for this admission?: Yes Plan: vasopressor agents - Time Total Critical Time (Minutes): 55
--- NOTE | 2018-10-19 11:51 | Operative Report ---
Operative Report DATE OF SURGERY: 10/09/18 Operative Report: Indication severe septic shock good nail blanching but no palpable arteries pulsations in the upper extremities. Good palpation of the right femoral artery right inguinal area was prepped,draped and anesthetized with 1% lidocaine in a sterile fashion then the right femoral artery was cannulated after a micropuncture guidewire was inserted. Good waveforms: Excellent blood return good distal pulses patient tolerated well. PREOPERATIVE DIAGNOSIS: Severe septic shock POSTOPERATIVE DIAGNOSIS: Same OPERATION: Right femoral A-line insertion SURGEON: DELFIN CHAIDEZ ANESTHESIA: GA TISSUE REMOVED OR ALTERED: n/a COMPLICATIONS: na ESTIMATED BLOOD LOSS: none
== END 2018-10-10 12:22 | disposition left against medical advice (07) | DRG 871 ==
LOC: ER 11:45 → EH 14:12 → ICU 16:36
PROVIDERS: ADMIT Internal Medicine; ATTEND Internal Medicine
PROC: 02HV33Z Insertion of Infusion Device into Superior Vena Cava, Percutaneous Approach (ICD-10-PCS; principal; 2018-10-09)
PROC: 0BH17EZ Insertion of Endotracheal Airway into Trachea, Via Natural or Artificial Opening (ICD-10-PCS; 2018-10-09)
PROC: 5A1935Z Respiratory Ventilation, Less than 24 Consecutive Hours (ICD-10-PCS; 2018-10-09)
DX: A41.81 Sepsis due to Enterococcus (principal); J96.21 Acute and chronic respiratory failure with hypoxia; J96.22 Acute and chronic respiratory failure with hypercapnia; J18.9 Pneumonia, unspecified organism; R65.21 Severe sepsis with septic shock; N30.00 Acute cystitis without hematuria; N17.9 Acute kidney failure, unspecified; C79.51 Secondary malignant neoplasm of bone; N18.4 Chronic kidney disease, stage 4 (severe); I13.0 Hypertensive heart and chronic kidney disease with heart failure and stage 1 through stage 4 chronic kidney disease, or unspecified chronic kidney disease; Z51.5 Encounter for palliative care; C50.919 Malignant neoplasm of unspecified site of unspecified female breast; R73.9 Hyperglycemia, unspecified; I48.91 Unspecified atrial fibrillation; M19.90 Unspecified osteoarthritis, unspecified site; I50.9 Heart failure, unspecified; Z95.2 Presence of prosthetic heart valve; J44.9 Chronic obstructive pulmonary disease, unspecified; Z90.13 Acquired absence of bilateral breasts and nipples; I34.0 Nonrheumatic mitral (valve) insufficiency; E66.9 Obesity, unspecified; R74.8 Abnormal levels of other serum enzymes; E03.9 Hypothyroidism, unspecified; Z99.81 Dependence on supplemental oxygen; Z82.49 Family history of ischemic heart disease and other diseases of the circulatory system; Z88.0 Allergy status to penicillin; Z79.899 Other long term (current) drug therapy; Z78.1 Physical restraint status
CPT/HCPCS: 36415; 36556; 36600; 36620; 71045; 76937; 80048; 80053; 80069; 81001; 82040; 82550; 82553; 82803; 82962; 83605; 83735; 83880; 84484; 85025; 85610; 87040; 87070; 87077; 87086; 87088; 87186; 87205; 93005; 93010; 93306; 94002; 94003; 94640; 94660; 96361; 96365; 96375; 99291; C1751; J0330; J0456; J0610; J0692; J1642; J1956; J2185; J2250; J2370; J2704; J2930; J3010; J3370; J3490; J7030; J7040; J7060; J7120; J7620